=== PATIENT | female | born 1995 | race American Indian/Alaskan Native ===

== ENCOUNTER 2021-06-01 10:27 | Outpatient (CLI) | payer MEDICAID ==
--- NOTE | 2021-06-01 13:00 | Event Note ---
Date: 06/01/21 (Pt would like to go home.) Pt is a 25 y.o. @ 40+ wks gestation with c/o decreased movement. Pt denies vaginal bleeding, LOF, ctxs. A BPP was ordered and found to be 6/8, off for breathing. These findings were discussed with the patient and the need to be admitted for IOL. Pt and her declined admission at this time. Stating that they want labor to start naturally on its own and they wanted limited vaginal exams. We discussed the risk of stillborn is increased at this time d/t being postdates, and based on BPP finding of no practice breathing. Pt states " I am comfortable with the risk of stillborn and I will come back to triage if the baby is not moving like normal." There was a category 1 monitor tracing throughout her triage stay. Patient states that she had some movement before being discharged home. Pt discharged home with strict precautions: she is to return to triage if decreased movement, vaginal bleeding, LOF, and ctxs. If she does not return to triage, she will keep her scheduled appointment in the clinic on 06/04.
[2021-06-01 13:39] VITALS: BP 120/70
--- NOTE | 2021-06-01 14:15 | Ultrasound Report ---
ULTRASOUND BIOPHYSICAL PROFILE INDICATION: Please do a full STEFFEN.. COMPARISON: None available. FINDINGS: breathing movement = 0 Gross body movement = 2 tone = 2 Qualitative amniotic fluid volume = 2 Total biophysical score = 6/8 Amniotic fluid index is 6.2 cm. Presentation is Cephalic. heart rate is 113 beats per minute. IMPRESSION: 1. biophysical profile = 6/8 2. Amniotic fluid index is 6.2 cm just below the lower limits of normal. Signer Name: Lee Powell MD Signed: 06/01/2021 2:10 PM Workstation Name: [id number]
== END 2021-06-01 13:00 | disposition home or self-care (01) ==
LOC: TRG 10:27 → APU 10:29 → TRG 13:00
PROVIDERS: ATTEND Obstetrics & Gynecology
DX: O36.8130 Decreased fetal movements, third trimester, not applicable or unspecified (principal); Z3A.40 40 weeks gestation of pregnancy
CPT/HCPCS: 76815; 76819

== ENCOUNTER 2021-06-06 16:14 | Inpatient (IN) | payer MEDICAID ==
--- NOTE | 2021-06-06 16:28 | History and Physical Report ---
History of Present Illness Date of examination: 06/06/21 (pt presents for IOL 41+w) Date of admission: 06/06/21 16:14 History of present illness: EDC Confirmation: 05/28/2021 Gestational Age: 41 1/7 weeks Past History : 1 Term Births: 0 Premature Births: 0 Living Children: 0 Para: 0 Mult. Births: 0 Prev : 0 Prev. attempt? 0 Aborta: 0 Elect. Ab: 0 Spont. 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 of genital herpes: no Partner hx. of genital herpes: no Rash, Viral, or Febrile illness since last LMP? no Varicella/Chicken Pox Status: Immunized Genetic History Congenital Heart Defect: Mom: no Dad: no Simon Disease: Mom: no Dad: no Thalassemia Mom: no Dad: no Neural Tube Defect Mom: yes Dad: no Comments: cousin's child Down's Syndrome Mom: no Dad: no Jonah-Sachs Mom: no Dad: no Sickle Cell Disease/Trait Mom: no Dad: no Hemophilia Mom: no Dad: no Muscular Dystrophy Mom: no Dad: no Cystic Fibrosis Mom: no Dad: no Judah Chorea Mom: no Dad: no Mental Retardation Mom: no Dad: no Fragile X Mom: no Dad: no Other Genetic/Chromosomal Disorder Mom: no Dad: no Child w/other defect Mom: no Dad: no Enviromental Exposures Xray Exposure: no Medication, drug, or alcohol use since LMP: no Chemical/Other Exposure: no Exposure to Cat Liter: yes Hx of Parvovirus (Fifth Disease): no Occupational Exposure to Children: none 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 Medications (reviewed today): PLUS 27-1 MG ORAL TABLET ( VIT-FE FUMARATE-FA) 1 po daily 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) Current Allergies (reviewed today): No known allergies Past History - Obstetrical History Expected Date of Delivery: 05/28/21 Actual Gestation: 41 Week(s) 3 Day(s) : 1 Para: 0 Hx # Term Pregnancies: 0 Number of Pregnancies: 0 Spontaneous Abortions: 0 Induced : 0 Number of Living Children: 0 Medications and Allergies Allergies Allergy/AdvReac Type Severity Reaction Status Date / Time No Known Allergies Allergy Verified 06/01/21 10:58 Home Medications Medication Instructions Recorded Confirmed Last Taken Type One Daily Tablet 1 tab PO DAILY 06/06/21 06/06/21 1 Day Ago History ~06/05/21 Review of Systems All systems: negative - Physical Exam Breasts: Positive: deferred Cardiovascular: Regular rate, Normal S1, Normal S2 Lungs: Positive: Normal air movement Abdomen: Positive: normal appearance, soft, normal bowel sounds. Negative: distention, tenderness Genitourinary (Female): Positive: normal external genitalia Vulva: both: normal Vagina: Positive: normal moisture. Negative: discharge Cervix: Negative: lesion, discharge Uterus: Positive: normal size, normal contour Adnexa: both: normal Anus/Rectum: Positive: normal perianal skin, heme negative. Negative: rectal mass, hemorrhoids Extremities: Positive: normal Deep Tendon Reflex Grade: Normal +2 - Obstetrical FHR: category 1 Uterine Contraction Monitor Mode: External Cervical Dilatation: 0.5 (per RN) Cervical Effacement Percentage: 0 station: -3 Uterine Contraction Pattern: Irregular Uterine Tone Measurement Phase: Resting Uterine Contraction Intensity: Mild Results Result Diagrams: 06/06/21 16:56 All other labs normal. GBS Negative HBsAg Screen Negative Negative *1 RPR Non Reactive Non Reactive *2 Rubella Antibodies, IgG 2.68 index Immune >0.99 *3 Non-immune <0.90 Equivocal 0.90 - 0.99 Immune >0.99 ABO Grouping A *4 Rh Factor Positive *5 Please note: Prior records for this patient's ABO / Rh type are not available for additional verification. Antibody Screen Negative Negative *6 WBC 5.3 x10E3/uL 3.4-10.8 *7 RBC 4.02 x10E6/uL 3.77-5.28 *8 Hemoglobin 13.0 g/dL 11.1-15.9 *9 Hematocrit 38.1 % 34.0-46.6 *10 MCV 95 fL 79-97 *11 MCH 32.3 pg 26.6-33.0 *12 MCHC 34.1 g/dL 31.5-35.7 *13 RDW 12.8 % 11.7-15.4 *14 Platelets 222 x10E3/uL 150-450 *15 Neutrophils 66 % Not Estab. *16 Lymphs 23 % Not Estab. *17 Monocytes 7 % Not Estab. *18 Eos 3 % Not Estab. *19 Basos 1 % Not Estab. *20 ! Immature Cells <No Reported Value> *21 Neutrophils (Absolute) 3.5 x10E3/uL 1.4-7.0 *22 Lymphs (Absolute) 1.2 x10E3/uL 0.7-3.1 *23 Monocytes(Absolute) 0.4 x10E3/uL 0.1-0.9 *24 Eos (Absolute) 0.1 x10E3/uL 0.0-0.4 *25 Baso (Absolute) 0.0 x10E3/uL 0.0-0.2 *26 ! Immature Granulocytes 0 % Not Estab. *27 ! Immature Grans (Abs) 0.0 x10E3/uL 0.0-0.1 *28 ! NRBC <No Reported Value> *29 Hematology Comments: <No Reported Value> *30 Tests: (2) AFP Tetra ([id number]) ! Results Report *31 ! Test Results: *Screen Negative* *32 ! Gest. Age on Collection Date 16.0 WEEKS *33 ! Gestat. Age Based On Ultrasound *34 16.0 on 12/11/2020 Tests: (3) HIV Ag/Ab with Reflex ([id number]) HIV Screen 4th Generation wRfx Non Reactive Non Reactive *55 Tests: (4) HCV Ab w/Rflx to Verification ([id number]) ! HCV Ab <0.1 s/co ratio 0.0-0.9 *56 Tests: (5) Comment: ([id number]) ! Comment: SPRCS *57 Non reactive HCV antibody screen is consistent with no HCV infection, unless recent infection is suspected or other evidence exists to indicate HCV infection. Tests: (6) Urine Culture, Routine ([id number]) Urine Culture, Routine Final report *58 Tests: (7) Result ([id number]) ! Result 1 No growth *5 Assessment and Plan 25yo @ 41w for IOL. GBS negative all orders in EMR. Dr Gan aware of admission - Patient Problems (1) Post-dates Onset Date: ~06/06/21 Current Visit: Yes Status: Acute (2) 41 weeks gestation of Onset Date: ~06/06/21 Current Visit: Yes Status: Acute
[2021-06-06] MEDS ORDERED: NalbUPHINE 10 MG/1 ML INJ IV PRN (17:00)
[2021-06-06] MEDS ORDERED: LIDOCAINE (2%) 20 MG/1 ML VIAL 20 ML MDV INFILTRATI SCH (17:00)
[2021-06-06] MEDS ORDERED: CARBOPROST TROMETHAMINE 250 MCG/1 ML INJ IM PRN (17:00)
[2021-06-06] MEDS ORDERED: METHYLERGONOVINE MALEATE 0.2 MG/ML VIAL IM PRN (17:00)
[2021-06-06] MEDS ORDERED: MINERAL OIL 30 ML ORAL LIQD PO PRN (17:00)
[2021-06-06] MEDS ORDERED: LOPERAMIDE 2 MG CAP PO PRN (17:00)
[2021-06-06] MEDS ORDERED: TERBUTALINE 1 MG/1 ML INJ SUB-Q PRN (17:00)
[2021-06-06] MEDS ORDERED: ACETAMINOPHEN 325 MG TAB PO PRN (17:00)
[2021-06-06] MEDS ORDERED: ePHEDrine SULFATE 50 MG/1 ML INJ IV PRN (17:00)
[2021-06-06] MEDS ORDERED: DINOPROSTONE 10 MG VAG SUPP VG SCH (17:00)
[2021-06-06] MEDS ORDERED: OXYTOCIN 10 UNIT/1 ML INJ IM PRN (17:00)
[2021-06-06] MEDS ORDERED: miSOPROStol 200 MCG TAB PR PRN (17:00)
[2021-06-06] MEDS ORDERED: OXYTOCIN DRIP 30 UNITS/500 ML BAG IV SCH ×2 (17:00)
[2021-06-06 17:36] LABS: Hematocrit 39.6 % (30.3-42.9); Hemoglobin 13.4 gm/dl (10.1-14.3); Mean Corpuscular HGB Conc 34 % (30-34); Mean Corpuscular Volume 98 fl (79-97); Platelet Count 193 K/mm3 (140-440); Red Blood Count 4.04 M/mm3 (3.65-5.03); Red Cell Distribution Width 13.9 % (13.2-15.2)
[2021-06-06] MEDS ORDERED: DINOPROSTONE 10 MG VAG SUPP VG ONE (18:30)
[2021-06-07] MEDS: LACTATED RINGERS 1,000 ML IV SCH (04:50)
[2021-06-07] MEDS ORDERED: miSOPROStol 25 MCG TAB PO NR (08:56)
--- NOTE | 2021-06-07 08:56 | Progress Note ---
<ADAMSMINATIFFANY - Last Filed: 06/07/21 08:55> Objective - Vital Signs Vital Signs: Vital Signs - 12hr 06/06/21 06/06/21 06/06/21 20:58 21:03 21:08 Temperature Pulse Rate 75 83 80 Blood Pressure O2 Sat by Pulse 100 99 99 Oximetry 06/06/21 06/06/21 06/06/21 21:13 21:18 21:23 Temperature Pulse Rate 82 73 73 Blood Pressure O2 Sat by Pulse 100 100 100 Oximetry 06/06/21 06/06/21 06/06/21 21:28 21:33 21:38 Temperature Pulse Rate 89 76 86 Blood Pressure O2 Sat by Pulse 99 99 99 Oximetry 06/06/21 06/06/21 06/06/21 21:43 21:48 21:53 Temperature Pulse Rate 91 H 84 82 Blood Pressure O2 Sat by Pulse 98 98 99 Oximetry 06/06/21 06/06/21 06/06/21 21:58 22:03 22:11 Temperature Pulse Rate 90 87 74 Blood Pressure O2 Sat by Pulse 100 100 100 Oximetry 06/06/21 06/06/21 06/06/21 22:16 22:21 22:26 Temperature Pulse Rate 85 77 84 Blood Pressure O2 Sat by Pulse 99 98 98 Oximetry 06/06/21 06/06/21 06/06/21 22:31 22:36 22:41 Temperature Pulse Rate 89 79 81 Blood Pressure O2 Sat by Pulse 98 99 100 Oximetry 06/06/21 06/06/21 06/06/21 22:46 22:51 22:56 Temperature Pulse Rate 79 81 73 Blood Pressure O2 Sat by Pulse 100 100 100 Oximetry 06/06/21 06/06/21 06/06/21 23:01 23:06 23:11 Temperature Pulse Rate 87 81 78 Blood Pressure O2 Sat by Pulse 99 99 99 Oximetry 06/06/21 06/06/21 06/06/21 23:16 23:21 23:26 Temperature Pulse Rate 88 86 87 Blood Pressure O2 Sat by Pulse 99 98 99 Oximetry 06/06/21 06/06/21 06/06/21 23:31 23:36 23:41 Temperature Pulse Rate 83 85 75 Blood Pressure O2 Sat by Pulse 98 98 98 Oximetry 06/06/21 06/06/21 06/06/21 23:47 23:52 23:57 Temperature Pulse Rate 79 93 H 73 Blood Pressure 101/66 O2 Sat by Pulse 100 100 99 Oximetry 06/07/21 06/07/21 06/07/21 00:02 00:07 00:08 Temperature 99.0 F Pulse Rate 74 76 Blood Pressure O2 Sat by Pulse 100 99 Oximetry 06/07/21 06/07/21 06/07/21 00:12 00:17 00:22 Temperature Pulse Rate 80 72 79 Blood Pressure O2 Sat by Pulse 97 99 99 Oximetry 06/07/21 06/07/21 06/07/21 00:27 00:32 00:37 Temperature Pulse Rate 76 65 73 Blood Pressure O2 Sat by Pulse 96 98 98 Oximetry 06/07/21 06/07/21 06/07/21 00:42 00:47 00:52 Temperature Pulse Rate 73 71 67 Blood Pressure O2 Sat by Pulse 98 97 98 Oximetry 06/07/21 06/07/21 06/07/21 00:57 01:02 01:07 Temperature Pulse Rate 74 71 70 Blood Pressure O2 Sat by Pulse 99 96 96 Oximetry 06/07/21 06/07/21 06/07/21 01:12 01:17 01:22 Temperature Pulse Rate 71 70 77 Blood Pressure O2 Sat by Pulse 97 97 97 Oximetry 06/07/21 06/07/21 06/07/21 01:27 01:32 01:37 Temperature Pulse Rate 73 85 69 Blood Pressure O2 Sat by Pulse 97 98 98 Oximetry 06/07/21 06/07/21 06/07/21 01:42 01:47 01:52 Temperature Pulse Rate 69 71 67 Blood Pressure O2 Sat by Pulse 98 98 98 Oximetry 06/07/21 06/07/21 06/07/21 01:57 02:02 02:07 Temperature Pulse Rate 66 69 71 Blood Pressure O2 Sat by Pulse 99 99 99 Oximetry 06/07/21 06/07/21 06/07/21 02:12 02:17 02:22 Temperature Pulse Rate 75 69 69 Blood Pressure O2 Sat by Pulse 99 99 99 Oximetry 06/07/21 06/07/21 06/07/21 02:27 02:32 02:37 Temperature Pulse Rate 79 76 69 Blood Pressure O2 Sat by Pulse 97 98 99 Oximetry 06/07/21 06/07/21 06/07/21 02:42 02:47 02:52 Temperature Pulse Rate 77 71 85 Blood Pressure O2 Sat by Pulse 97 98 97 Oximetry 06/07/21 06/07/21 06/07/21 02:57 03:02 03:07 Temperature Pulse Rate 70 109 H 78 Blood Pressure O2 Sat by Pulse 98 97 98 Oximetry 06/07/21 06/07/21 06/07/21 03:12 03:17 03:22 Temperature Pulse Rate 81 83 94 H Blood Pressure O2 Sat by Pulse 97 97 97 Oximetry 06/07/21 06/07/21 06/07/21 03:27 03:32 03:37 Temperature Pulse Rate 87 65 90 Blood Pressure O2 Sat by Pulse 97 97 97 Oximetry 06/07/21 06/07/21 06/07/21 03:42 03:47 03:52 Temperature Pulse Rate 73 71 83 Blood Pressure O2 Sat by Pulse 98 97 98 Oximetry 06/07/21 06/07/21 06/07/21 03:57 04:02 04:07 Temperature Pulse Rate 74 69 76 Blood Pressure O2 Sat by Pulse 99 99 99 Oximetry 06/07/21 06/07/21 06/07/21 04:12 04:17 04:22 Temperature Pulse Rate 77 72 77 Blood Pressure O2 Sat by Pulse 97 97 100 Oximetry 06/07/21 06/07/21 06/07/21 04:27 04:32 04:37 Temperature Pulse Rate 77 75 80 Blood Pressure O2 Sat by Pulse 98 98 99 Oximetry 06/07/21 06/07/21 06/07/21 04:42 04:45 04:47 Temperature Pulse Rate 75 75 74 Blood Pressure 92/58 O2 Sat by Pulse 99 100 Oximetry 06/07/21 06/07/21 06/07/21 04:52 04:57 04:58 Temperature 98.1 F Pulse Rate 71 71 Blood Pressure O2 Sat by Pulse 100 100 Oximetry 06/07/21 06/07/21 06/07/21 05:02 05:07 05:12 Temperature Pulse Rate 73 78 90 Blood Pressure O2 Sat by Pulse 100 99 98 Oximetry 06/07/21 06/07/21 06/07/21 05:17 05:22 05:27 Temperature Pulse Rate 77 71 67 Blood Pressure O2 Sat by Pulse 98 99 99 Oximetry 06/07/21 06/07/21 06/07/21 05:32 05:37 05:42 Temperature Pulse Rate 66 81 76 Blood Pressure O2 Sat by Pulse 99 98 99 Oximetry 06/07/21 06/07/21 06/07/21 05:47 05:52 05:57 Temperature Pulse Rate 76 82 72 Blood Pressure O2 Sat by Pulse 100 100 100 Oximetry 06/07/21 06/07/21 06/07/21 06:02 06:07 06:18 Temperature Pulse Rate 64 70 Blood Pressure O2 Sat by Pulse 100 100 75 L Oximetry 06/07/21 06/07/21 06/07/21 06:19 06:23 06:28 Temperature Pulse Rate 92 H 74 73 Blood Pressure O2 Sat by Pulse 75 L 99 100 Oximetry 06/07/21 06/07/21 06/07/21 06:33 06:38 06:43 Temperature Pulse Rate 71 68 74 Blood Pressure O2 Sat by Pulse 100 100 99 Oximetry 06/07/21 06/07/21 06/07/21 06:48 06:53 07:02 Temperature Pulse Rate 72 71 69 Blood Pressure O2 Sat by Pulse 100 100 100 Oximetry 06/07/21 06/07/21 06/07/21 07:07 07:12 07:17 Temperature Pulse Rate 73 69 67 Blood Pressure O2 Sat by Pulse 100 100 100 Oximetry 06/07/21 06/07/21 06/07/21 07:22 07:27 07:32 Temperature Pulse Rate 64 68 65 Blood Pressure O2 Sat by Pulse 100 100 100 Oximetry 06/07/21 06/07/21 06/07/21 07:37 07:42 07:47 Temperature Pulse Rate 67 63 69 Blood Pressure O2 Sat by Pulse 100 100 100 Oximetry 06/07/21 06/07/21 06/07/21 07:52 07:57 08:02 Temperature Pulse Rate 81 67 66 Blood Pressure O2 Sat by Pulse 100 100 100 Oximetry 06/07/21 06/07/21 06/07/21 08:07 08:19 08:24 Temperature Pulse Rate 68 67 68 Blood Pressure O2 Sat by Pulse 100 100 100 Oximetry 06/07/21 06/07/21 06/07/21 08:28 08:29 08:34 Temperature Pulse Rate 72 79 74 Blood Pressure O2 Sat by Pulse 90 100 100 Oximetry 06/07/21 06/07/21 06/07/21 08:39 08:44 08:49 Temperature Pulse Rate 82 69 78 Blood Pressure O2 Sat by Pulse 100 100 100 Oximetry - Labs Labs: Abnormal Labs 06/06/21 16:56 MCV 98 H MCH 33 H Laboratory Results - last 24 hr 06/06/21 06/06/21 06/06/21 16:56 16:56 17:02 WBC 5.0 RBC 4.04 Hgb 13.4 Hct 39.6 MCV 98 H MCH 33 H MCHC 34 RDW 13.9 Plt Count 193 Syphilis IgG Antibody Nonreactive Blood Type A POSITIVE Antibody Screen Negative <RACHID VILLANUEVA - Last Filed: 06/07/21 09:42> Assessment and Plan - Patient Problems (1) 41 weeks gestation of Onset Date: ~06/06/21 Current Visit: Yes Status: Acute Plan to address problem: EFW 8#2oz, pelvis difficult to assess to patient's inability to tolerate exam well, however pelvis feels adequate at this time. Limitations of determining adequateness of the pelvis at this EGA discussed. She was informed there may be a 1-2# weight discrepancy by US in the 3rd trimester. Risks with ROXIE discussed, including but not limited to, shoulder dystocia in which the may have transient or permanent paralysis of the the extremities, brain damage or as well as infection. Also discussed possible injury to the rectum or perineum that may require multiple surgeries and result in permanent difficulties with bowel movements and pain. Risks associated with delivery explained, including but not limited to, bleeding that may require a blood transfusion, infection, injury to her bowel and/or bladder or ureters that may be life threatening or fatal. Questions were encouraged and answered. She voiced understanding and desires to proceed with ROXIE. (2) Post-dates Onset Date: ~06/06/21 Current Visit: Yes Status: Acute Subjective - Subjective Date of service: 06/07/21 Principal diagnosis: IUP@ 41wk, IOL postterm Patient reports: movement normal, no new complaints, no loss of fluid, no vaginal bleeding, no contractions Objective - Vital Signs Vital Signs: Vital Signs - 12hr 06/06/21 06/06/21 06/06/21 21:43 21:48 21:53 Temperature Pulse Rate 91 H 84 82 Blood Pressure O2 Sat by Pulse 98 98 99 Oximetry 06/06/21 06/06/21 06/06/21 21:58 22:03 22:11 Temperature Pulse Rate 90 87 74 Blood Pressure O2 Sat by Pulse 100 100 100 Oximetry 06/06/21 06/06/21 06/06/21 22:16 22:21 22:26 Temperature Pulse Rate 85 77 84 Blood Pressure O2 Sat by Pulse 99 98 98 Oximetry 06/06/21 06/06/21 06/06/21 22:31 22:36 22:41 Temperature Pulse Rate 89 79 81 Blood Pressure O2 Sat by Pulse 98 99 100 Oximetry 06/06/21 06/06/21 06/06/21 22:46 22:51 22:56 Temperature Pulse Rate 79 81 73 Blood Pressure O2 Sat by Pulse 100 100 100 Oximetry 06/06/21 06/06/21 06/06/21 23:01 23:06 23:11 Temperature Pulse Rate 87 81 78 Blood Pressure O2 Sat by Pulse 99 99 99 Oximetry 06/06/21 06/06/21 06/06/21 23:16 23:21 23:26 Temperature Pulse Rate 88 86 87 Blood Pressure O2 Sat by Pulse 99 98 99 Oximetry 06/06/21 06/06/21 06/06/21 23:31 23:36 23:41 Temperature Pulse Rate 83 85 75 Blood Pressure O2 Sat by Pulse 98 98 98 Oximetry 06/06/21 06/06/21 06/06/21 23:47 23:52 23:57 Temperature Pulse Rate 79 93 H 73 Blood Pressure 101/66 O2 Sat by Pulse 100 100 99 Oximetry 06/07/21 06/07/21 06/07/21 00:02 00:07 00:08 Temperature 99.0 F Pulse Rate 74 76 Blood Pressure O2 Sat by Pulse 100 99 Oximetry 06/07/21 06/07/21 06/07/21 00:12 00:17 00:22 Temperature Pulse Rate 80 72 79 Blood Pressure O2 Sat by Pulse 97 99 99 Oximetry 06/07/21 06/07/21 06/07/21 00:27 00:32 00:37 Temperature Pulse Rate 76 65 73 Blood Pressure O2 Sat by Pulse 96 98 98 Oximetry 06/07/21 06/07/21 06/07/21 00:42 00:47 00:52 Temperature Pulse Rate 73 71 67 Blood Pressure O2 Sat by Pulse 98 97 98 Oximetry 06/07/21 06/07/21 06/07/21 00:57 01:02 01:07 Temperature Pulse Rate 74 71 70 Blood Pressure O2 Sat by Pulse 99 96 96 Oximetry 06/07/21 06/07/21 06/07/21 01:12 01:17 01:22 Temperature Pulse Rate 71 70 77 Blood Pressure O2 Sat by Pulse 97 97 97 Oximetry 06/07/21 06/07/21 06/07/21 01:27 01:32 01:37 Temperature Pulse Rate 73 85 69 Blood Pressure O2 Sat by Pulse 97 98 98 Oximetry 06/07/21 06/07/21 06/07/21 01:42 01:47 01:52 Temperature Pulse Rate 69 71 67 Blood Pressure O2 Sat by Pulse 98 98 98 Oximetry 06/07/21 06/07/21 06/07/21 01:57 02:02 02:07 Temperature Pulse Rate 66 69 71 Blood Pressure O2 Sat by Pulse 99 99 99 Oximetry 06/07/21 06/07/21 06/07/21 02:12 02:17 02:22 Temperature Pulse Rate 75 69 69 Blood Pressure O2 Sat by Pulse 99 99 99 Oximetry 06/07/21 06/07/21 06/07/21 02:27 02:32 02:37 Temperature Pulse Rate 79 76 69 Blood Pressure O2 Sat by Pulse 97 98 99 Oximetry 06/07/21 06/07/21 06/07/21 02:42 02:47 02:52 Temperature Pulse Rate 77 71 85 Blood Pressure O2 Sat by Pulse 97 98 97 Oximetry 06/07/21 06/07/21 06/07/21 02:57 03:02 03:07 Temperature Pulse Rate 70 109 H 78 Blood Pressure O2 Sat by Pulse 98 97 98 Oximetry 06/07/21 06/07/21 06/07/21 03:12 03:17 03:22 Temperature Pulse Rate 81 83 94 H Blood Pressure O2 Sat by Pulse 97 97 97 Oximetry 06/07/21 06/07/21 06/07/21 03:27 03:32 03:37 Temperature Pulse Rate 87 65 90 Blood Pressure O2 Sat by Pulse 97 97 97 Oximetry 06/07/21 06/07/21 06/07/21 03:42 03:47 03:52 Temperature Pulse Rate 73 71 83 Blood Pressure O2 Sat by Pulse 98 97 98 Oximetry 06/07/21 06/07/21 06/07/21 03:57 04:02 04:07 Temperature Pulse Rate 74 69 76 Blood Pressure O2 Sat by Pulse 99 99 99 Oximetry 06/07/21 06/07/21 06/07/21 04:12 04:17 04:22 Temperature Pulse Rate 77 72 77 Blood Pressure O2 Sat by Pulse 97 97 100 Oximetry 06/07/21 06/07/21 06/07/21 04:27 04:32 04:37 Temperature Pulse Rate 77 75 80 Blood Pressure O2 Sat by Pulse 98 98 99 Oximetry 06/07/21 06/07/21 06/07/21 04:42 04:45 04:47 Temperature Pulse Rate 75 75 74 Blood Pressure 92/58 O2 Sat by Pulse 99 100 Oximetry 06/07/21 06/07/21 06/07/21 04:52 04:57 04:58 Temperature 98.1 F Pulse Rate 71 71 Blood Pressure O2 Sat by Pulse 100 100 Oximetry 06/07/21 06/07/21 06/07/21 05:02 05:07 05:12 Temperature Pulse Rate 73 78 90 Blood Pressure O2 Sat by Pulse 100 99 98 Oximetry 06/07/21 06/07/21 06/07/21 05:17 05:22 05:27 Temperature Pulse Rate 77 71 67 Blood Pressure O2 Sat by Pulse 98 99 99 Oximetry 06/07/21 06/07/21 06/07/21 05:32 05:37 05:42 Temperature Pulse Rate 66 81 76 Blood Pressure O2 Sat by Pulse 99 98 99 Oximetry 06/07/21 06/07/21 06/07/21 05:47 05:52 05:57 Temperature Pulse Rate 76 82 72 Blood Pressure O2 Sat by Pulse 100 100 100 Oximetry 06/07/21 06/07/21 06/07/21 06:02 06:07 06:18 Temperature Pulse Rate 64 70 Blood Pressure O2 Sat by Pulse 100 100 75 L Oximetry 06/07/21 06/07/21 06/07/21 06:19 06:23 06:28 Temperature Pulse Rate 92 H 74 73 Blood Pressure O2 Sat by Pulse 75 L 99 100 Oximetry 06/07/21 06/07/21 06/07/21 06:33 06:38 06:43 Temperature Pulse Rate 71 68 74 Blood Pressure O2 Sat by Pulse 100 100 99 Oximetry 06/07/21 06/07/21 06/07/21 06:48 06:53 07:02 Temperature Pulse Rate 72 71 69 Blood Pressure O2 Sat by Pulse 100 100 100 Oximetry 06/07/21 06/07/21 06/07/21 07:07 07:12 07:17 Temperature Pulse Rate 73 69 67 Blood Pressure O2 Sat by Pulse 100 100 100 Oximetry 06/07/21 06/07/21 06/07/21 07:22 07:27 07:32 Temperature Pulse Rate 64 68 65 Blood Pressure O2 Sat by Pulse 100 100 100 Oximetry 06/07/21 06/07/21 06/07/21 07:37 07:42 07:47 Temperature Pulse Rate 67 63 69 Blood Pressure O2 Sat by Pulse 100 100 100 Oximetry 06/07/21 06/07/21 06/07/21 07:52 07:57 08:02 Temperature Pulse Rate 81 67 66 Blood Pressure O2 Sat by Pulse 100 100 100 Oximetry 06/07/21 06/07/21 06/07/21 08:07 08:19 08:24 Temperature Pulse Rate 68 67 68 Blood Pressure O2 Sat by Pulse 100 100 100 Oximetry 06/07/21 06/07/21 06/07/21 08:28 08:29 08:34 Temperature Pulse Rate 72 79 74 Blood Pressure O2 Sat by Pulse 90 100 100 Oximetry 06/07/21 06/07/21 06/07/21 08:39 08:44 08:49 Temperature Pulse Rate 82 69 78 Blood Pressure O2 Sat by Pulse 100 100 100 Oximetry 06/07/21 06/07/21 06/07/21 08:54 08:59 09:04 Temperature Pulse Rate 69 67 66 Blood Pressure O2 Sat by Pulse 100 100 100 Oximetry 06/07/21 06/07/21 06/07/21 09:09 09:14 09:16 Temperature Pulse Rate 72 66 69 Blood Pressure 91/56 O2 Sat by Pulse 100 99 Oximetry 06/07/21 06/07/21 06/07/21 09:17 09:19 09:24 Temperature Pulse Rate 61 74 73 Blood Pressure O2 Sat by Pulse 74 L 98 98 Oximetry - Exam Breasts: deferred Cardiovascular: Regular rate Lungs: Normal air movement Abdomen: Present: soft. Absent: tenderness Vulva: both: normal Uterus: Present: fundal height above umbilicus. Absent: tenderness FHR: category 1 Uterine Contraction Monitor Mode: External Cervical Dilatation: 0.5 Cervical Effacement Percentage: 40 station: -3 Uterine Contraction Pattern: Absent Deep Tendon Reflex Grade: Normal +2 - Labs Labs: Abnormal Labs 06/06/21 16:56 MCV 98 H MCH 33 H Laboratory Results - last 24 hr 06/06/21 06/06/21 06/06/21 16:56 16:56 17:02 WBC 5.0 RBC 4.04 Hgb 13.4 Hct 39.6 MCV 98 H MCH 33 H MCHC 34 RDW 13.9 Plt Count 193 Syphilis IgG Antibody Nonreactive Blood Type A POSITIVE Antibody Screen Negative
[2021-06-07] MEDS ORDERED: miSOPROStol 25 MCG TAB PO ONE (16:30)
--- NOTE | 2021-06-07 16:30 | Event Note ---
Date: 06/07/21 Pt without complaints. SVE 1/thick/high/posterior; POC discussed with pt and FOB. IOL options discussed in length, including risks and benefits. Pt verbalizes understanding. Pt agrees to cytotec PO dose at this time. Order placed in EMR and RN notified. Dr. Block made aware.
--- NOTE | 2021-06-07 22:32 | Progress Note ---
Assessment and Plan Pt without complaints s/p 2 doses of cytotec. FHT's cat 1 with regular contraction pattern at this time. Pt agrees to cervical exam. SVE 1cm/30%/-3 VTX intact BOW. POC d/w pt. Pt agrees to cooks catheter placement. Sterile speculum placed and cervix cleaned with betadine. Cooks catheter inserted without difficulty and each balloon inflated with 80mL of sterile water. Pt tolerated procedure well. Plan to start low dose Pitocin if contraction frequency changes >q3mins. Pt verbalizes understanding and agreement. All questions and concerns addressed. Anticipate . - Patient Problems (1) 41 weeks gestation of Onset Date: ~06/06/21 Current Visit: Yes Status: Acute (2) Post-dates Onset Date: ~06/06/21 Current Visit: Yes Status: Acute Subjective - Subjective Date of service: 06/07/21 Principal diagnosis: IUP@ 41wk, IOL postterm Patient reports: movement normal, contractions, no new complaints, no loss of fluid, no vaginal bleeding Objective - Vital Signs Vital Signs: Vital Signs - 12hr 06/07/21 06/07/21 06/07/21 11:20 15:22 19:03 Temperature 98.7 F Pulse Rate 81 75 69 Respiratory 18 Rate Blood Pressure 98/63 107/66 95/59 Blood Pressure 107/66 [Left] O2 Sat by Pulse Oximetry 06/07/21 19:05 Temperature 98.3 F Pulse Rate 74 Respiratory 20 Rate Blood Pressure Blood Pressure 95/59 [Left] O2 Sat by Pulse 100 Oximetry - Exam Breasts: deferred Cardiovascular: Regular rate Lungs: Normal air movement Abdomen: Present: normal appearance, soft Vulva: both: normal Uterus: Present: normal. Absent: bogginess, tenderness FHR: auscultation normal, category 1 Uterine Contraction Monitor Mode: External Cervical Dilatation: 1 Cervical Effacement Percentage: 30 station: -3 Uterine Contraction Frequency (min): 2 Uterine Contraction Pattern: Regular Uterine Tone Measurement Phase: Resting Extremities: normal - Labs Labs: Abnormal Labs 06/06/21 16:56 MCV 98 H MCH 33 H Laboratory Results - last 24 hr 06/07/21 Unknown Coronavirus (PCR) Negative
[2021-06-08] MEDS: LACTATED RINGERS 1,000 ML IV SCH ×2 (00:48→19:25)
[2021-06-08] MEDS: fentaNYL 100 MCG/2 ML INJ IV PRN ×2 (02:17→06:18)
--- NOTE | 2021-06-08 08:23 | Progress Note ---
Assessment and Plan Cooks cath in place, only cervical balloon if filled at this time, vaginal balloon was deflated by previous floor attendant. Cervical balloon due to come out @ 1015 this morning. Plan reviewed with patient and nurse to continue pitocin per protocol. Patient asking questions about inductions process, discussed plan of care. reviewed with patient she has received cervidil, cytotec, cooks cath and now pitocin. Pain expectations and management reviewed. patient adamant about pitocin being increased to her comfort - advised that during IOL, painful ctx are desired as they lead to cervical change. reviewed difference between IOL and spontaneous labor. An epidural is available if she would like one. All questions addressed. - Patient Problems (1) 41 weeks gestation of Onset Date: ~06/06/21 Current Visit: Yes Status: Acute (2) Post-dates Onset Date: ~06/06/21 Current Visit: Yes Status: Acute Qualifiers: Post-term type: 40-42 weeks gestation Qualified Code(s): O48.0 - Post-term Subjective - Subjective Date of service: 06/08/21 Principal diagnosis: IUP@ 41wk+4; IOL postterm Patient reports: movement normal, contractions, no new complaints, no loss of fluid, no vaginal bleeding Objective - Vital Signs Vital Signs: Vital Signs - 12hr 06/08/21 06/08/21 06/08/21 02:11 02:16 02:17 Temperature Pulse Rate 95 H 93 H Respiratory 28 H Rate Blood Pressure Blood Pressure [Left] O2 Sat by Pulse 98 100 Oximetry O2 Sat by Pulse Oximetry [ Bilateral] 06/08/21 06/08/21 06/08/21 02:21 02:24 02:26 Temperature Pulse Rate 87 90 87 Respiratory Rate Blood Pressure Blood Pressure [Left] O2 Sat by Pulse 100 94 98 Oximetry O2 Sat by Pulse Oximetry [ Bilateral] 06/08/21 06/08/21 06/08/21 02:30 02:31 02:36 Temperature Pulse Rate 96 H 84 93 H Respiratory Rate Blood Pressure Blood Pressure [Left] O2 Sat by Pulse 88 97 98 Oximetry O2 Sat by Pulse Oximetry [ Bilateral] 06/08/21 06/08/21 06/08/21 02:40 02:41 02:45 Temperature Pulse Rate 99 H 90 109 H Respiratory Rate Blood Pressure Blood Pressure [Left] O2 Sat by Pulse 91 98 92 Oximetry O2 Sat by Pulse Oximetry [ Bilateral] 06/08/21 06/08/21 06/08/21 02:46 07:19 07:27 Temperature 98.7 F Pulse Rate 93 H 68 Respiratory 14 Rate Blood Pressure Blood Pressure 93/58 [Left] O2 Sat by Pulse 96 100 Oximetry O2 Sat by Pulse 100 Oximetry [ Bilateral] 06/08/21 07:47 Temperature Pulse Rate 80 Respiratory Rate Blood Pressure 108/66 Blood Pressure [Left] O2 Sat by Pulse Oximetry O2 Sat by Pulse Oximetry [ Bilateral] - Exam Breasts: normal Cardiovascular: Regular rate Lungs: Normal air movement Abdomen: Present: normal appearance, soft Vulva: both: normal (small amount bloody show noted) Uterus: Present: normal FHR: auscultation normal Uterine Contraction Monitor Mode: External Uterine Contraction Pattern: Irregular Uterine Tone Measurement Phase: Contraction Uterine Contraction Intensity: Mild Extremities: normal - Labs Labs: Abnormal Labs 06/06/21 16:56 MCV 98 H MCH 33 H Laboratory Results - last 24 hr 06/07/21 Unknown Coronavirus (PCR) Negative
[2021-06-08] MEDS ORDERED: ePHEDrine SULFATE 50 MG/1 ML INJ IV PRN (13:14)
[2021-06-08] MEDS ORDERED: NALOXONE 2 MG/2 ML INJ IV PRN (13:14)
[2021-06-08] MEDS ORDERED: diphenhydrAMINE 50 MG/ML VIAL IV PRN (13:14)
[2021-06-08] MEDS ORDERED: LACTATED RINGERS 250 ML IV SOLN IV ONE (13:14)
[2021-06-08] MEDS ORDERED: ONDANSETRON 4 MG/2 ML INJ IV PRN (13:14)
[2021-06-08] MEDS ORDERED: NalbUPHINE 10 MG/1 ML INJ IV PRN (13:14)
--- NOTE | 2021-06-08 13:28 | Anesthesia Consultation ---
Anesthesia Consult and Med Hx Date of service: 06/08/21 - Airway Anesthetic Teeth Evaluation: Good ROM Head & Neck: Adequate Mental/Hyoid Distance: Adequate Mallampati Class: Class II Intubation Access Assessment: Probably Good - Pulmonary Exam CTA: Yes - Cardiac Exam Cardiac Exam: RRR - Pre-Operative Health Status ASA Pre-Surgery Classification: ASA2 Proposed Anesthetic Plan: Epidural - Pulmonary Hx Smoking: No Hx Asthma: No Hx Sleep Apnea: No - Cardiovascular System Hx Hypertension: No Hx Heart Attack/AMI: No Hx Angina: No - Central Nervous System Hx Seizures: No Hx Psychiatric Problems: No - Gastrointestinal Hx Gastroesophageal Reflux Disease: No - Endocrine Hx Renal Disease: No Hx Liver Disease: No Hx Insulin Dependent Diabetes: No Hx Non-Insulin Dependent Diabetes: No Hx Hypothyroidism: No Hx Hyperthyroidism: No - Hematic Hx Anemia: No Hx Sickle Cell Disease: No - Other Systems Hx Alcohol Use: No Hx Obesity: Yes
--- NOTE | 2021-06-08 13:30 | Progress Note ---
Labor Epidural - Labor Epidural Start Time: 12:53 Stop Time: 13:07 Performed by:: JUAN CARRENO (Kavitha Edge) Procedure: Patient is requesting epidural for labor and pain. H&P, labs were reviewed. Patient IDed, H&P reviewed, all questions and concerns were answered, and consent was signed. Timeout was performed at bedside. Patient in sitting position. Sterile prep and drape was performed. 3ml of 1% lidocaine skin wheal at L[3]- L [4]. 18-gauge [employer] epidural needle was advanced to loss of resistance with air technique 5cm. Negative CSF negative blood. Epidural catheter advanced to [11] centimeters. [negative] Aspiration [negative] test dose. Sterile dressing applied. Patient tolerated procedure.
[2021-06-08] MEDS: fentaNYL-BUPIV 2 MCG/ML-0.125% 200 MCG/100 ML BAG EPIDURAL SCH ×2 (13:58→22:08)
--- NOTE | 2021-06-08 17:05 | Progress Note ---
Assessment and Plan Late entry due to computer delay - 1420; SVE now 5.5cms/BBOW, discussed with patient pros/cons of AROM and placement of IUPC to better titrate pitocin. Pt agrees with plan of care; AROM clear fluid. IUPC placed without difficultly. - Patient Problems (1) 41 weeks gestation of Onset Date: ~06/06/21 Current Visit: Yes Status: Acute (2) Post-dates Onset Date: ~06/06/21 Current Visit: Yes Status: Acute Qualifiers: Post-term type: 40-42 weeks gestation Qualified Code(s): O48.0 - Post-term Subjective - Subjective Date of service: 06/08/21 Principal diagnosis: IUP@ 41wk+4; IOL postterm Patient reports: no new complaints (comfortable s/p epidural) Objective - Vital Signs Vital Signs: Vital Signs - 12hr 06/08/21 06/08/21 06/08/21 07:19 07:27 07:47 Temperature 98.7 F Pulse Rate 68 80 Respiratory 14 Rate Blood Pressure 108/66 Blood Pressure 93/58 [Left] O2 Sat by Pulse 100 Oximetry O2 Sat by Pulse 100 Oximetry [ Bilateral] 06/08/21 06/08/21 06/08/21 12:23 12:24 12:28 Temperature Pulse Rate 83 87 80 Respiratory Rate Blood Pressure 105/68 Blood Pressure [Left] O2 Sat by Pulse 97 99 Oximetry O2 Sat by Pulse Oximetry [ Bilateral] 06/08/21 06/08/21 06/08/21 12:29 12:33 12:35 Temperature Pulse Rate 82 84 78 Respiratory Rate Blood Pressure 109/70 Blood Pressure [Left] O2 Sat by Pulse 93 95 Oximetry O2 Sat by Pulse Oximetry [ Bilateral] 06/08/21 06/08/21 06/08/21 12:37 12:38 12:39 Temperature Pulse Rate 80 78 78 Respiratory Rate Blood Pressure 107/69 107/68 Blood Pressure [Left] O2 Sat by Pulse 99 Oximetry O2 Sat by Pulse Oximetry [ Bilateral] 06/08/21 06/08/21 06/08/21 12:41 12:43 12:45 Temperature Pulse Rate 75 82 78 Respiratory Rate Blood Pressure 102/65 104/66 119/78 Blood Pressure [Left] O2 Sat by Pulse 97 Oximetry O2 Sat by Pulse Oximetry [ Bilateral] 06/08/21 06/08/21 06/08/21 12:47 12:48 12:49 Temperature Pulse Rate 85 80 73 Respiratory Rate Blood Pressure 113/67 111/73 Blood Pressure [Left] O2 Sat by Pulse 95 Oximetry O2 Sat by Pulse Oximetry [ Bilateral] 06/08/21 06/08/21 06/08/21 12:51 12:53 12:55 Temperature Pulse Rate 82 81 81 Respiratory Rate Blood Pressure 108/69 112/75 104/69 Blood Pressure [Left] O2 Sat by Pulse 97 Oximetry O2 Sat by Pulse Oximetry [ Bilateral] 06/08/21 06/08/21 06/08/21 12:57 12:58 12:59 Temperature Pulse Rate 76 83 78 Respiratory Rate Blood Pressure 109/70 113/75 Blood Pressure [Left] O2 Sat by Pulse 100 Oximetry O2 Sat by Pulse Oximetry [ Bilateral] 06/08/21 06/08/21 06/08/21 13:01 13:03 13:05 Temperature Pulse Rate 75 82 78 Respiratory Rate Blood Pressure 105/72 103/73 104/70 Blood Pressure [Left] O2 Sat by Pulse 100 Oximetry O2 Sat by Pulse Oximetry [ Bilateral] 06/08/21 06/08/21 06/08/21 13:07 13:08 13:09 Temperature Pulse Rate 78 85 80 Respiratory Rate Blood Pressure 103/70 105/73 Blood Pressure [Left] O2 Sat by Pulse 98 Oximetry O2 Sat by Pulse Oximetry [ Bilateral] 06/08/21 06/08/21 06/08/21 13:12 13:13 13:15 Temperature Pulse Rate 90 90 96 H Respiratory Rate Blood Pressure 145/65 118/64 121/59 Blood Pressure [Left] O2 Sat by Pulse 96 Oximetry O2 Sat by Pulse Oximetry [ Bilateral] 06/08/21 06/08/21 06/08/21 13:17 13:18 13:19 Temperature Pulse Rate 93 H 100 H 75 Respiratory Rate Blood Pressure 96/70 104/59 Blood Pressure [Left] O2 Sat by Pulse 97 Oximetry O2 Sat by Pulse Oximetry [ Bilateral] 06/08/21 06/08/21 06/08/21 13:21 13:23 13:25 Temperature Pulse Rate 82 84 78 Respiratory Rate Blood Pressure 110/61 115/63 115/64 Blood Pressure [Left] O2 Sat by Pulse 96 Oximetry O2 Sat by Pulse Oximetry [ Bilateral] 06/08/21 06/08/21 06/08/21 13:27 13:28 13:29 Temperature Pulse Rate 82 80 75 Respiratory Rate Blood Pressure 115/63 108/57 Blood Pressure [Left] O2 Sat by Pulse 98 Oximetry O2 Sat by Pulse Oximetry [ Bilateral] 06/08/21 06/08/21 06/08/21 13:31 13:33 13:35 Temperature Pulse Rate 89 88 83 Respiratory Rate Blood Pressure 101/65 104/64 99/59 Blood Pressure [Left] O2 Sat by Pulse 98 Oximetry O2 Sat by Pulse Oximetry [ Bilateral] 06/08/21 06/08/21 06/08/21 13:36 13:37 13:38 Temperature Pulse Rate 85 73 80 Respiratory Rate Blood Pressure 104/59 Blood Pressure [Left] O2 Sat by Pulse 93 95 Oximetry O2 Sat by Pulse Oximetry [ Bilateral] 06/08/21 06/08/21 06/08/21 13:39 13:41 13:43 Temperature Pulse Rate 75 80 79 Respiratory Rate Blood Pressure 102/62 102/59 103/61 Blood Pressure [Left] O2 Sat by Pulse 95 Oximetry O2 Sat by Pulse Oximetry [ Bilateral] 06/08/21 06/08/21 06/08/21 13:44 13:45 13:47 Temperature Pulse Rate 72 76 83 Respiratory Rate Blood Pressure 105/62 104/65 Blood Pressure [Left] O2 Sat by Pulse 93 Oximetry O2 Sat by Pulse Oximetry [ Bilateral] 06/08/21 06/08/21 06/08/21 13:48 13:49 13:51 Temperature Pulse Rate 77 67 73 Respiratory Rate Blood Pressure 106/60 104/61 Blood Pressure [Left] O2 Sat by Pulse 98 Oximetry O2 Sat by Pulse Oximetry [ Bilateral] 06/08/21 06/08/21 06/08/21 13:53 13:55 13:57 Temperature Pulse Rate 76 74 71 Respiratory Rate Blood Pressure 108/61 109/67 104/65 Blood Pressure [Left] O2 Sat by Pulse 96 Oximetry O2 Sat by Pulse Oximetry [ Bilateral] 06/08/21 06/08/21 06/08/21 13:58 13:59 14:01 Temperature Pulse Rate 71 74 71 Respiratory Rate Blood Pressure 107/66 104/65 Blood Pressure [Left] O2 Sat by Pulse 99 Oximetry O2 Sat by Pulse Oximetry [ Bilateral] 06/08/21 06/08/21 06/08/21 14:03 14:05 14:07 Temperature Pulse Rate 80 82 75 Respiratory Rate Blood Pressure 124/80 118/62 106/54 Blood Pressure [Left] O2 Sat by Pulse 99 Oximetry O2 Sat by Pulse Oximetry [ Bilateral] 06/08/21 06/08/21 06/08/21 14:08 14:09 14:11 Temperature Pulse Rate 76 70 78 Respiratory Rate Blood Pressure 105/55 102/55 Blood Pressure [Left] O2 Sat by Pulse 100 Oximetry O2 Sat by Pulse Oximetry [ Bilateral] 06/08/21 06/08/21 06/08/21 14:13 14:15 14:17 Temperature Pulse Rate 70 72 81 Respiratory Rate Blood Pressure 97/58 99/62 109/71 Blood Pressure [Left] O2 Sat by Pulse 98 Oximetry O2 Sat by Pulse Oximetry [ Bilateral] 06/08/21 06/08/21 06/08/21 14:18 14:19 14:21 Temperature Pulse Rate 74 74 86 Respiratory Rate Blood Pressure 110/63 110/64 Blood Pressure [Left] O2 Sat by Pulse 98 Oximetry O2 Sat by Pulse Oximetry [ Bilateral] 06/08/21 06/08/21 06/08/21 14:23 14:25 14:27 Temperature Pulse Rate 76 73 71 Respiratory Rate Blood Pressure 107/60 112/67 112/69 Blood Pressure [Left] O2 Sat by Pulse 98 Oximetry O2 Sat by Pulse Oximetry [ Bilateral] 06/08/21 06/08/21 06/08/21 14:28 14:33 14:38 Temperature Pulse Rate 71 80 91 H Respiratory Rate Blood Pressure Blood Pressure [Left] O2 Sat by Pulse 98 97 95 Oximetry O2 Sat by Pulse Oximetry [ Bilateral] 06/08/21 06/08/21 06/08/21 14:43 14:48 14:53 Temperature Pulse Rate 77 73 73 Respiratory Rate Blood Pressure Blood Pressure [Left] O2 Sat by Pulse 98 98 97 Oximetry O2 Sat by Pulse Oximetry [ Bilateral] 06/08/21 06/08/21 06/08/21 14:58 15:03 15:08 Temperature Pulse Rate 75 71 76 Respiratory Rate Blood Pressure Blood Pressure [Left] O2 Sat by Pulse 97 97 98 Oximetry O2 Sat by Pulse Oximetry [ Bilateral] 08/27/21 08/27/21 08/27/21 15:13 15:18 15:23 Temperature Pulse Rate 72 74 75 Respiratory Rate Blood Pressure Blood Pressure [Left] O2 Sat by Pulse 97 96 97 Oximetry O2 Sat by Pulse Oximetry [ Bilateral] 06/08/21 06/08/21 06/08/21 15:28 15:29 15:33 Temperature Pulse Rate 77 79 70 Respiratory Rate Blood Pressure 88/54 Blood Pressure [Left] O2 Sat by Pulse 97 96 Oximetry O2 Sat by Pulse Oximetry [ Bilateral] 06/08/21 06/08/21 06/08/21 15:38 15:43 15:48 Temperature Pulse Rate 74 75 84 Respiratory Rate Blood Pressure Blood Pressure [Left] O2 Sat by Pulse 97 96 96 Oximetry O2 Sat by Pulse Oximetry [ Bilateral] 06/08/21 06/08/21 06/08/21 15:53 15:58 16:03 Temperature Pulse Rate 89 75 80 Respiratory Rate Blood Pressure Blood Pressure [Left] O2 Sat by Pulse 95 95 96 Oximetry O2 Sat by Pulse Oximetry [ Bilateral] 06/08/21 06/08/21 06/08/21 16:06 16:08 16:13 Temperature Pulse Rate 83 78 75 Respiratory Rate Blood Pressure Blood Pressure [Left] O2 Sat by Pulse 93 95 97 Oximetry O2 Sat by Pulse Oximetry [ Bilateral] 06/08/21 06/08/21 06/08/21 16:18 16:23 16:28 Temperature Pulse Rate 74 72 79 Respiratory Rate Blood Pressure Blood Pressure [Left] O2 Sat by Pulse 96 94 98 Oximetry O2 Sat by Pulse Oximetry [ Bilateral] 06/08/21 06/08/21 06/08/21 16:30 16:33 16:37 Temperature Pulse Rate 75 91 H 75 Respiratory Rate Blood Pressure 124/66 Blood Pressure [Left] O2 Sat by Pulse 91 97 Oximetry O2 Sat by Pulse Oximetry [ Bilateral] 06/08/21 06/08/21 06/08/21 16:38 16:39 16:43 Temperature 98.8 F Pulse Rate 74 88 Respiratory 18 Rate Blood Pressure Blood Pressure [Left] O2 Sat by Pulse 95 96 Oximetry O2 Sat by Pulse Oximetry [ Bilateral] 06/08/21 06/08/21 06/08/21 16:47 16:48 16:53 Temperature Pulse Rate 74 72 74 Respiratory Rate Blood Pressure Blood Pressure [Left] O2 Sat by Pulse 93 96 96 Oximetry O2 Sat by Pulse Oximetry [ Bilateral] 06/08/21 16:58 Temperature Pulse Rate 69 Respiratory Rate Blood Pressure Blood Pressure [Left] O2 Sat by Pulse 95 Oximetry O2 Sat by Pulse Oximetry [ Bilateral] - Exam Cardiovascular: Regular rate Lungs: Clear to auscultation Abdomen: Present: normal appearance, soft, normal bowel sounds Vulva: both: normal Uterus: Present: normal, firm FHR: auscultation normal Uterine Contraction Monitor Mode: Internal Cervical Dilatation: 5.5 (AROM - clear) Cervical Effacement Percentage: 80 station: -1 - Labs Labs: Abnormal Labs 06/06/21 16:56 MCV 98 H MCH 33 H
--- NOTE | 2021-06-08 20:03 | Progress Note ---
Assessment and Plan reevaluated SVE - now /-1. Small amount of caput noted, anterior portion of cervix swollen. suspect baby is asynclitic. RN to use frequent position changes. Pitocin turned off earlier d/t tachysystole, restarted @ 6mU for adequate ctxs. RN to increase per protocol. Dr. greco updated on pt's status. - Patient Problems (1) 41 weeks gestation of Onset Date: ~06/06/21 Current Visit: Yes Status: Acute (2) Post-dates Onset Date: ~06/06/21 Current Visit: Yes Status: Acute Qualifiers: Post-term type: 40-42 weeks gestation Qualified Code(s): O48.0 - Post-term Subjective - Subjective Date of service: 06/08/21 Principal diagnosis: IUP@ 41wk+4; IOL postterm Patient reports: no new complaints (comfortable s/p epidural) Objective - Vital Signs Vital Signs: Vital Signs - 12hr 06/08/21 06/08/21 06/08/21 12:23 12:24 12:28 Temperature Pulse Rate 83 87 80 Respiratory Rate Blood Pressure 105/68 O2 Sat by Pulse 97 99 Oximetry 06/08/21 06/08/21 06/08/21 12:29 12:33 12:35 Temperature Pulse Rate 82 84 78 Respiratory Rate Blood Pressure 109/70 O2 Sat by Pulse 93 95 Oximetry 06/08/21 06/08/21 06/08/21 12:37 12:38 12:39 Temperature Pulse Rate 80 78 78 Respiratory Rate Blood Pressure 107/69 107/68 O2 Sat by Pulse 99 Oximetry 06/08/21 06/08/21 06/08/21 12:41 12:43 12:45 Temperature Pulse Rate 75 82 78 Respiratory Rate Blood Pressure 102/65 104/66 119/78 O2 Sat by Pulse 97 Oximetry 06/08/21 06/08/21 06/08/21 12:47 12:48 12:49 Temperature Pulse Rate 85 80 73 Respiratory Rate Blood Pressure 113/67 111/73 O2 Sat by Pulse 95 Oximetry 06/08/21 06/08/21 06/08/21 12:51 12:53 12:55 Temperature Pulse Rate 82 81 81 Respiratory Rate Blood Pressure 108/69 112/75 104/69 O2 Sat by Pulse 97 Oximetry 06/08/21 06/08/21 06/08/21 12:57 12:58 12:59 Temperature Pulse Rate 76 83 78 Respiratory Rate Blood Pressure 109/70 113/75 O2 Sat by Pulse 100 Oximetry 06/08/21 06/08/21 06/08/21 13:01 13:03 13:05 Temperature Pulse Rate 75 82 78 Respiratory Rate Blood Pressure 105/72 103/73 104/70 O2 Sat by Pulse 100 Oximetry 06/08/21 06/08/21 06/08/21 13:07 13:08 13:09 Temperature Pulse Rate 78 85 80 Respiratory Rate Blood Pressure 103/70 105/73 O2 Sat by Pulse 98 Oximetry 06/08/21 06/08/21 06/08/21 13:12 13:13 13:15 Temperature Pulse Rate 90 90 96 H Respiratory Rate Blood Pressure 145/65 118/64 121/59 O2 Sat by Pulse 96 Oximetry 06/08/21 06/08/21 06/08/21 13:17 13:18 13:19 Temperature Pulse Rate 93 H 100 H 75 Respiratory Rate Blood Pressure 96/70 104/59 O2 Sat by Pulse 97 Oximetry 06/08/21 06/08/21 06/08/21 13:21 13:23 13:25 Temperature Pulse Rate 82 84 78 Respiratory Rate Blood Pressure 110/61 115/63 115/64 O2 Sat by Pulse 96 Oximetry 06/08/21 06/08/21 06/08/21 13:27 13:28 13:29 Temperature Pulse Rate 82 80 75 Respiratory Rate Blood Pressure 115/63 108/57 O2 Sat by Pulse 98 Oximetry 06/08/21 06/08/21 06/08/21 13:31 13:33 13:35 Temperature Pulse Rate 89 88 83 Respiratory Rate Blood Pressure 101/65 104/64 99/59 O2 Sat by Pulse 98 Oximetry 06/08/21 06/08/21 06/08/21 13:36 13:37 13:38 Temperature Pulse Rate 85 73 80 Respiratory Rate Blood Pressure 104/59 O2 Sat by Pulse 93 95 Oximetry 06/08/21 06/08/21 06/08/21 13:39 13:41 13:43 Temperature Pulse Rate 75 80 79 Respiratory Rate Blood Pressure 102/62 102/59 103/61 O2 Sat by Pulse 95 Oximetry 06/08/21 06/08/21 06/08/21 13:44 13:45 13:47 Temperature Pulse Rate 72 76 83 Respiratory Rate Blood Pressure 105/62 104/65 O2 Sat by Pulse 93 Oximetry 06/08/21 06/08/21 06/08/21 13:48 13:49 13:51 Temperature Pulse Rate 77 67 73 Respiratory Rate Blood Pressure 106/60 104/61 O2 Sat by Pulse 98 Oximetry 06/08/21 06/08/21 06/08/21 13:53 13:55 13:57 Temperature Pulse Rate 76 74 71 Respiratory Rate Blood Pressure 108/61 109/67 104/65 O2 Sat by Pulse 96 Oximetry 06/08/21 06/08/21 06/08/21 13:58 13:59 14:01 Temperature Pulse Rate 71 74 71 Respiratory Rate Blood Pressure 107/66 104/65 O2 Sat by Pulse 99 Oximetry 06/08/21 06/08/21 06/08/21 14:03 14:05 14:07 Temperature Pulse Rate 80 82 75 Respiratory Rate Blood Pressure 124/80 118/62 106/54 O2 Sat by Pulse 99 Oximetry 06/08/21 06/08/21 06/08/21 14:08 14:09 14:11 Temperature Pulse Rate 76 70 78 Respiratory Rate Blood Pressure 105/55 102/55 O2 Sat by Pulse 100 Oximetry 06/08/21 06/08/21 06/08/21 14:13 14:15 14:17 Temperature Pulse Rate 70 72 81 Respiratory Rate Blood Pressure 97/58 99/62 109/71 O2 Sat by Pulse 98 Oximetry 06/08/21 06/08/21 06/08/21 14:18 14:19 14:21 Temperature Pulse Rate 74 74 86 Respiratory Rate Blood Pressure 110/63 110/64 O2 Sat by Pulse 98 Oximetry 06/08/21 06/08/21 06/08/21 14:23 14:25 14:27 Temperature Pulse Rate 76 73 71 Respiratory Rate Blood Pressure 107/60 112/67 112/69 O2 Sat by Pulse 98 Oximetry 06/08/21 06/08/21 06/08/21 14:28 14:33 14:38 Temperature Pulse Rate 71 80 91 H Respiratory Rate Blood Pressure O2 Sat by Pulse 98 97 95 Oximetry 06/08/21 06/08/21 06/08/21 14:43 14:48 14:53 Temperature Pulse Rate 77 73 73 Respiratory Rate Blood Pressure O2 Sat by Pulse 98 98 97 Oximetry 06/08/21 06/08/21 06/08/21 14:58 15:03 15:08 Temperature Pulse Rate 75 71 76 Respiratory Rate Blood Pressure O2 Sat by Pulse 97 97 98 Oximetry 06/08/21 06/08/21 06/08/21 15:13 15:18 15:23 Temperature Pulse Rate 72 74 75 Respiratory Rate Blood Pressure O2 Sat by Pulse 97 96 97 Oximetry 06/08/21 06/08/21 06/08/21 15:28 15:29 15:33 Temperature Pulse Rate 77 79 70 Respiratory Rate Blood Pressure 88/54 O2 Sat by Pulse 97 96 Oximetry 06/08/21 06/08/21 06/08/21 15:38 15:43 15:48 Temperature Pulse Rate 74 75 84 Respiratory Rate Blood Pressure O2 Sat by Pulse 97 96 96 Oximetry 06/08/21 06/08/21 06/08/21 15:53 15:58 16:03 Temperature Pulse Rate 89 75 80 Respiratory Rate Blood Pressure O2 Sat by Pulse 95 95 96 Oximetry 06/08/21 06/08/21 06/08/21 16:06 16:08 16:13 Temperature Pulse Rate 83 78 75 Respiratory Rate Blood Pressure O2 Sat by Pulse 93 95 97 Oximetry 06/08/21 06/08/21 06/08/21 16:18 16:23 16:28 Temperature Pulse Rate 74 72 79 Respiratory Rate Blood Pressure O2 Sat by Pulse 96 94 98 Oximetry 06/08/21 06/08/21 06/08/21 16:30 16:33 16:37 Temperature Pulse Rate 75 91 H 75 Respiratory Rate Blood Pressure 124/66 O2 Sat by Pulse 91 97 Oximetry 06/08/21 06/08/21 06/08/21 16:38 16:39 16:43 Temperature 98.8 F Pulse Rate 74 88 Respiratory 18 Rate Blood Pressure O2 Sat by Pulse 95 96 Oximetry 06/08/21 06/08/21 06/08/21 16:47 16:48 16:53 Temperature Pulse Rate 74 72 74 Respiratory Rate Blood Pressure O2 Sat by Pulse 93 96 96 Oximetry 06/08/21 06/08/21 06/08/21 16:58 17:03 17:08 Temperature Pulse Rate 69 73 73 Respiratory Rate Blood Pressure O2 Sat by Pulse 95 97 94 Oximetry 06/08/21 06/08/21 06/08/21 17:10 17:13 17:18 Temperature Pulse Rate 75 70 72 Respiratory Rate Blood Pressure O2 Sat by Pulse 92 96 95 Oximetry 06/08/21 06/08/21 06/08/21 17:23 17:25 17:29 Temperature Pulse Rate 70 88 73 Respiratory Rate Blood Pressure 112/58 O2 Sat by Pulse 93 93 97 Oximetry 06/08/21 06/08/21 06/08/21 17:34 17:39 17:42 Temperature Pulse Rate 77 84 83 Respiratory Rate Blood Pressure O2 Sat by Pulse 97 94 89 Oximetry 06/08/21 06/08/21 06/08/21 17:44 17:49 17:50 Temperature Pulse Rate 79 82 81 Respiratory Rate Blood Pressure O2 Sat by Pulse 100 98 92 Oximetry 06/08/21 06/08/21 06/08/21 17:54 17:59 18:04 Temperature Pulse Rate 73 78 76 Respiratory Rate Blood Pressure O2 Sat by Pulse 99 99 99 Oximetry 06/08/21 06/08/21 06/08/21 18:09 18:14 18:19 Temperature Pulse Rate 84 75 67 Respiratory Rate Blood Pressure O2 Sat by Pulse 96 98 99 Oximetry 06/08/21 06/08/21 06/08/21 18:24 18:29 18:30 Temperature Pulse Rate 65 67 70 Respiratory Rate Blood Pressure 106/56 O2 Sat by Pulse 98 97 Oximetry 06/08/21 06/08/21 06/08/21 18:34 18:39 18:41 Temperature Pulse Rate 69 71 80 Respiratory Rate Blood Pressure O2 Sat by Pulse 97 99 92 Oximetry 06/08/21 06/08/21 06/08/21 18:44 18:49 18:54 Temperature Pulse Rate 64 61 67 Respiratory Rate Blood Pressure O2 Sat by Pulse 100 100 100 Oximetry 06/08/21 06/08/21 06/08/21 18:59 19:04 19:09 Temperature Pulse Rate 68 71 67 Respiratory Rate Blood Pressure O2 Sat by Pulse 100 100 100 Oximetry 06/08/21 06/08/21 06/08/21 19:14 19:19 19:24 Temperature Pulse Rate 65 74 67 Respiratory Rate Blood Pressure O2 Sat by Pulse 100 100 100 Oximetry 06/08/21 06/08/21 06/08/21 19:29 19:34 19:39 Temperature Pulse Rate 73 86 83 Respiratory Rate Blood Pressure 93/59 O2 Sat by Pulse 100 100 100 Oximetry 06/08/21 06/08/21 06/08/21 19:44 19:49 19:54 Temperature Pulse Rate 65 85 78 Respiratory Rate Blood Pressure O2 Sat by Pulse 100 100 100 Oximetry - Exam Cardiovascular: Regular rate Lungs: Normal air movement Abdomen: Present: normal appearance, soft Vulva: both: normal Uterus: Present: normal FHR: auscultation normal, category 1 Uterine Contraction Monitor Mode: Internal Cervical Dilatation: 7 (swollen ant lip) Cervical Effacement Percentage: 90 station: -1 Uterine Contraction Frequency (min): 4-6 Uterine Contraction Duration: 60 Uterine Contraction Pattern: Regular Uterine Tone Measurement Phase: Contraction Uterine Contraction Intensity: Mild Extremities: normal - Labs Labs: Abnormal Labs 06/06/21 16:56 MCV 98 H MCH 33 H
[2021-06-08] MEDS ORDERED: ACETAMINOPHEN 500 MG TAB PO ONE (22:07)
--- NOTE | 2021-06-08 22:12 | Progress Note ---
Assessment and Plan Pitocin has remained @ 6Mu over the last 2 hours, ctx are not adequate. SVE now /0, swollen portion of anterior cervix is gone. small amount of caput noted but has not increased over the last 2 hours. Patient positioned to right side with peanut ball in place. rn to increase pitocin. Oral Temp 100.0, will give dose of Tylenol and continue to monitor closely. - Patient Problems (1) 41 weeks gestation of Onset Date: ~06/06/21 Current Visit: Yes Status: Acute (2) Post-dates Onset Date: ~06/06/21 Current Visit: Yes Status: Acute Qualifiers: Post-term type: 40-42 weeks gestation Qualified Code(s): O48.0 - Post-term Subjective - Subjective Date of service: 06/08/21 Principal diagnosis: IUP@ 41wk+4; IOL postterm Patient reports: no new complaints (comfortable s/p epidural) Objective - Vital Signs Vital Signs: Vital Signs - 12hr 06/08/21 06/08/21 06/08/21 12:23 12:24 12:28 Temperature Pulse Rate 83 87 80 Respiratory Rate Blood Pressure 105/68 O2 Sat by Pulse 97 99 Oximetry O2 Sat by Pulse Oximetry [ Bilateral] 06/08/21 06/08/21 06/08/21 12:29 12:33 12:35 Temperature Pulse Rate 82 84 78 Respiratory Rate Blood Pressure 109/70 O2 Sat by Pulse 93 95 Oximetry O2 Sat by Pulse Oximetry [ Bilateral] 06/08/21 06/08/21 06/08/21 12:37 12:38 12:39 Temperature Pulse Rate 80 78 78 Respiratory Rate Blood Pressure 107/69 107/68 O2 Sat by Pulse 99 Oximetry O2 Sat by Pulse Oximetry [ Bilateral] 06/08/21 06/08/21 06/08/21 12:41 12:43 12:45 Temperature Pulse Rate 75 82 78 Respiratory Rate Blood Pressure 102/65 104/66 119/78 O2 Sat by Pulse 97 Oximetry O2 Sat by Pulse Oximetry [ Bilateral] 06/08/21 06/08/21 06/08/21 12:47 12:48 12:49 Temperature Pulse Rate 85 80 73 Respiratory Rate Blood Pressure 113/67 111/73 O2 Sat by Pulse 95 Oximetry O2 Sat by Pulse Oximetry [ Bilateral] 06/08/21 06/08/21 06/08/21 12:51 12:53 12:55 Temperature Pulse Rate 82 81 81 Respiratory Rate Blood Pressure 108/69 112/75 104/69 O2 Sat by Pulse 97 Oximetry O2 Sat by Pulse Oximetry [ Bilateral] 06/08/21 06/08/21 06/08/21 12:57 12:58 12:59 Temperature Pulse Rate 76 83 78 Respiratory Rate Blood Pressure 109/70 113/75 O2 Sat by Pulse 100 Oximetry O2 Sat by Pulse Oximetry [ Bilateral] 06/08/21 06/08/21 06/08/21 13:01 13:03 13:05 Temperature Pulse Rate 75 82 78 Respiratory Rate Blood Pressure 105/72 103/73 104/70 O2 Sat by Pulse 100 Oximetry O2 Sat by Pulse Oximetry [ Bilateral] 06/08/21 06/08/21 06/08/21 13:07 13:08 13:09 Temperature Pulse Rate 78 85 80 Respiratory Rate Blood Pressure 103/70 105/73 O2 Sat by Pulse 98 Oximetry O2 Sat by Pulse Oximetry [ Bilateral] 06/08/21 06/08/21 06/08/21 13:12 13:13 13:15 Temperature Pulse Rate 90 90 96 H Respiratory Rate Blood Pressure 145/65 118/64 121/59 O2 Sat by Pulse 96 Oximetry O2 Sat by Pulse Oximetry [ Bilateral] 06/08/21 06/08/21 06/08/21 13:17 13:18 13:19 Temperature Pulse Rate 93 H 100 H 75 Respiratory Rate Blood Pressure 96/70 104/59 O2 Sat by Pulse 97 Oximetry O2 Sat by Pulse Oximetry [ Bilateral] 06/08/21 06/08/21 06/08/21 13:21 13:23 13:25 Temperature Pulse Rate 82 84 78 Respiratory Rate Blood Pressure 110/61 115/63 115/64 O2 Sat by Pulse 96 Oximetry O2 Sat by Pulse Oximetry [ Bilateral] 06/08/21 06/08/21 06/08/21 13:27 13:28 13:29 Temperature Pulse Rate 82 80 75 Respiratory Rate Blood Pressure 115/63 108/57 O2 Sat by Pulse 98 Oximetry O2 Sat by Pulse Oximetry [ Bilateral] 06/08/21 06/08/21 06/08/21 13:31 13:33 13:35 Temperature Pulse Rate 89 88 83 Respiratory Rate Blood Pressure 101/65 104/64 99/59 O2 Sat by Pulse 98 Oximetry O2 Sat by Pulse Oximetry [ Bilateral] 06/08/21 06/08/21 06/08/21 13:36 13:37 13:38 Temperature Pulse Rate 85 73 80 Respiratory Rate Blood Pressure 104/59 O2 Sat by Pulse 93 95 Oximetry O2 Sat by Pulse Oximetry [ Bilateral] 06/08/21 06/08/21 06/08/21 13:39 13:41 13:43 Temperature Pulse Rate 75 80 79 Respiratory Rate Blood Pressure 102/62 102/59 103/61 O2 Sat by Pulse 95 Oximetry O2 Sat by Pulse Oximetry [ Bilateral] 06/08/21 06/08/21 06/08/21 13:44 13:45 13:47 Temperature Pulse Rate 72 76 83 Respiratory Rate Blood Pressure 105/62 104/65 O2 Sat by Pulse 93 Oximetry O2 Sat by Pulse Oximetry [ Bilateral] 06/08/21 06/08/21 06/08/21 13:48 13:49 13:51 Temperature Pulse Rate 77 67 73 Respiratory Rate Blood Pressure 106/60 104/61 O2 Sat by Pulse 98 Oximetry O2 Sat by Pulse Oximetry [ Bilateral] 06/08/21 06/08/21 06/08/21 13:53 13:55 13:57 Temperature Pulse Rate 76 74 71 Respiratory Rate Blood Pressure 108/61 109/67 104/65 O2 Sat by Pulse 96 Oximetry O2 Sat by Pulse Oximetry [ Bilateral] 06/08/21 06/08/21 06/08/21 13:58 13:59 14:01 Temperature Pulse Rate 71 74 71 Respiratory Rate Blood Pressure 107/66 104/65 O2 Sat by Pulse 99 Oximetry O2 Sat by Pulse Oximetry [ Bilateral] 06/08/21 06/08/21 06/08/21 14:03 14:05 14:07 Temperature Pulse Rate 80 82 75 Respiratory Rate Blood Pressure 124/80 118/62 106/54 O2 Sat by Pulse 99 Oximetry O2 Sat by Pulse Oximetry [ Bilateral] 06/08/21 06/08/21 06/08/21 14:08 14:09 14:11 Temperature Pulse Rate 76 70 78 Respiratory Rate Blood Pressure 105/55 102/55 O2 Sat by Pulse 100 Oximetry O2 Sat by Pulse Oximetry [ Bilateral] 06/08/21 06/08/21 06/08/21 14:13 14:15 14:17 Temperature Pulse Rate 70 72 81 Respiratory Rate Blood Pressure 97/58 99/62 109/71 O2 Sat by Pulse 98 Oximetry O2 Sat by Pulse Oximetry [ Bilateral] 06/08/21 06/08/21 06/08/21 14:18 14:19 14:21 Temperature Pulse Rate 74 74 86 Respiratory Rate Blood Pressure 110/63 110/64 O2 Sat by Pulse 98 Oximetry O2 Sat by Pulse Oximetry [ Bilateral] 06/08/21 06/08/21 06/08/21 14:23 14:25 14:27 Temperature Pulse Rate 76 73 71 Respiratory Rate Blood Pressure 107/60 112/67 112/69 O2 Sat by Pulse 98 Oximetry O2 Sat by Pulse Oximetry [ Bilateral] 06/08/21 06/08/21 06/08/21 14:28 14:33 14:38 Temperature Pulse Rate 71 80 91 H Respiratory Rate Blood Pressure O2 Sat by Pulse 98 97 95 Oximetry O2 Sat by Pulse Oximetry [ Bilateral] 06/08/21 06/08/21 06/08/21 14:43 14:48 14:53 Temperature Pulse Rate 77 73 73 Respiratory Rate Blood Pressure O2 Sat by Pulse 98 98 97 Oximetry O2 Sat by Pulse Oximetry [ Bilateral] 06/08/21 06/08/21 06/08/21 14:58 15:03 15:08 Temperature Pulse Rate 75 71 76 Respiratory Rate Blood Pressure O2 Sat by Pulse 97 97 98 Oximetry O2 Sat by Pulse Oximetry [ Bilateral] 06/08/21 06/08/21 06/08/21 15:13 15:18 15:23 Temperature Pulse Rate 72 74 75 Respiratory Rate Blood Pressure O2 Sat by Pulse 97 96 97 Oximetry O2 Sat by Pulse Oximetry [ Bilateral] 06/08/21 06/08/21 06/08/21 15:28 15:29 15:33 Temperature Pulse Rate 77 79 70 Respiratory Rate Blood Pressure 88/54 O2 Sat by Pulse 97 96 Oximetry O2 Sat by Pulse Oximetry [ Bilateral] 06/08/21 06/08/21 06/08/21 15:38 15:43 15:48 Temperature Pulse Rate 74 75 84 Respiratory Rate Blood Pressure O2 Sat by Pulse 97 96 96 Oximetry O2 Sat by Pulse Oximetry [ Bilateral] 06/08/21 06/08/21 06/08/21 15:53 15:58 16:03 Temperature Pulse Rate 89 75 80 Respiratory Rate Blood Pressure O2 Sat by Pulse 95 95 96 Oximetry O2 Sat by Pulse Oximetry [ Bilateral] 06/08/21 06/08/21 06/08/21 16:06 16:08 16:13 Temperature Pulse Rate 83 78 75 Respiratory Rate Blood Pressure O2 Sat by Pulse 93 95 97 Oximetry O2 Sat by Pulse Oximetry [ Bilateral] 06/08/21 06/08/21 06/08/21 16:18 16:23 16:28 Temperature Pulse Rate 74 72 79 Respiratory Rate Blood Pressure O2 Sat by Pulse 96 94 98 Oximetry O2 Sat by Pulse Oximetry [ Bilateral] 06/08/21 06/08/21 06/08/21 16:30 16:33 16:37 Temperature Pulse Rate 75 91 H 75 Respiratory Rate Blood Pressure 124/66 O2 Sat by Pulse 91 97 Oximetry O2 Sat by Pulse Oximetry [ Bilateral] 06/08/21 06/08/21 06/08/21 16:38 16:39 16:43 Temperature 98.8 F Pulse Rate 74 88 Respiratory 18 Rate Blood Pressure O2 Sat by Pulse 95 96 Oximetry O2 Sat by Pulse Oximetry [ Bilateral] 06/08/21 06/08/21 06/08/21 16:47 16:48 16:53 Temperature Pulse Rate 74 72 74 Respiratory Rate Blood Pressure O2 Sat by Pulse 93 96 96 Oximetry O2 Sat by Pulse Oximetry [ Bilateral] 06/08/21 06/08/21 06/08/21 16:58 17:03 17:08 Temperature Pulse Rate 69 73 73 Respiratory Rate Blood Pressure O2 Sat by Pulse 95 97 94 Oximetry O2 Sat by Pulse Oximetry [ Bilateral] 06/08/21 06/08/21 06/08/21 17:10 17:13 17:18 Temperature Pulse Rate 75 70 72 Respiratory Rate Blood Pressure O2 Sat by Pulse 92 96 95 Oximetry O2 Sat by Pulse Oximetry [ Bilateral] 06/08/21 06/08/21 06/08/21 17:23 17:25 17:29 Temperature Pulse Rate 70 88 73 Respiratory Rate Blood Pressure 112/58 O2 Sat by Pulse 93 93 97 Oximetry O2 Sat by Pulse Oximetry [ Bilateral] 06/08/21 06/08/21 06/08/21 17:34 17:39 17:42 Temperature Pulse Rate 77 84 83 Respiratory Rate Blood Pressure O2 Sat by Pulse 97 94 89 Oximetry O2 Sat by Pulse Oximetry [ Bilateral] 06/08/21 06/08/21 06/08/21 17:44 17:49 17:50 Temperature Pulse Rate 79 82 81 Respiratory Rate Blood Pressure O2 Sat by Pulse 100 98 92 Oximetry O2 Sat by Pulse Oximetry [ Bilateral] 06/08/21 06/08/21 06/08/21 17:54 17:59 18:04 Temperature Pulse Rate 73 78 76 Respiratory Rate Blood Pressure O2 Sat by Pulse 99 99 99 Oximetry O2 Sat by Pulse Oximetry [ Bilateral] 06/08/21 06/08/21 06/08/21 18:09 18:14 18:19 Temperature Pulse Rate 84 75 67 Respiratory Rate Blood Pressure O2 Sat by Pulse 96 98 99 Oximetry O2 Sat by Pulse Oximetry [ Bilateral] 06/08/21 06/08/21 06/08/21 18:24 18:29 18:30 Temperature Pulse Rate 65 67 70 Respiratory Rate Blood Pressure 106/56 O2 Sat by Pulse 98 97 Oximetry O2 Sat by Pulse Oximetry [ Bilateral] 06/08/21 06/08/21 06/08/21 18:34 18:39 18:41 Temperature Pulse Rate 69 71 80 Respiratory Rate Blood Pressure O2 Sat by Pulse 97 99 92 Oximetry O2 Sat by Pulse Oximetry [ Bilateral] 06/08/21 06/08/21 06/08/21 18:44 18:49 18:54 Temperature Pulse Rate 64 61 67 Respiratory Rate Blood Pressure O2 Sat by Pulse 100 100 100 Oximetry O2 Sat by Pulse Oximetry [ Bilateral] 06/08/21 06/08/21 06/08/21 18:59 19:04 19:09 Temperature 98.6 F Pulse Rate 68 71 67 Respiratory 17 Rate Blood Pressure O2 Sat by Pulse 100 100 100 Oximetry O2 Sat by Pulse 100 Oximetry [ Bilateral] 06/08/21 06/08/21 06/08/21 19:14 19:19 19:24 Temperature Pulse Rate 65 74 67 Respiratory Rate Blood Pressure O2 Sat by Pulse 100 100 100 Oximetry O2 Sat by Pulse Oximetry [ Bilateral] 06/08/21 06/08/21 06/08/21 19:29 19:34 19:39 Temperature Pulse Rate 73 86 83 Respiratory Rate Blood Pressure 93/59 O2 Sat by Pulse 100 100 100 Oximetry O2 Sat by Pulse Oximetry [ Bilateral] 06/08/21 06/08/21 06/08/21 19:44 19:49 19:54 Temperature Pulse Rate 65 85 78 Respiratory Rate Blood Pressure O2 Sat by Pulse 100 100 100 Oximetry O2 Sat by Pulse Oximetry [ Bilateral] 06/08/21 06/08/21 06/08/21 19:59 20:04 20:09 Temperature Pulse Rate 82 65 65 Respiratory Rate Blood Pressure O2 Sat by Pulse 100 100 100 Oximetry O2 Sat by Pulse Oximetry [ Bilateral] 06/08/21 06/08/21 06/08/21 20:14 20:19 20:24 Temperature Pulse Rate 62 71 63 Respiratory Rate Blood Pressure O2 Sat by Pulse 100 100 100 Oximetry O2 Sat by Pulse Oximetry [ Bilateral] 06/08/21 06/08/21 06/08/21 20:29 20:34 20:39 Temperature Pulse Rate 66 74 67 Respiratory Rate Blood Pressure 104/59 O2 Sat by Pulse 100 100 100 Oximetry O2 Sat by Pulse Oximetry [ Bilateral] 06/08/21 06/08/21 06/08/21 20:44 20:47 20:49 Temperature Pulse Rate 68 90 89 Respiratory Rate Blood Pressure O2 Sat by Pulse 100 91 100 Oximetry O2 Sat by Pulse Oximetry [ Bilateral] 06/08/21 06/08/21 06/08/21 20:54 20:59 21:04 Temperature Pulse Rate 87 109 H 89 Respiratory Rate Blood Pressure O2 Sat by Pulse 100 100 100 Oximetry O2 Sat by Pulse Oximetry [ Bilateral] 06/08/21 06/08/21 06/08/21 21:09 21:14 21:19 Temperature Pulse Rate 73 76 75 Respiratory Rate Blood Pressure O2 Sat by Pulse 100 100 100 Oximetry O2 Sat by Pulse Oximetry [ Bilateral] 06/08/21 06/08/21 06/08/21 21:24 21:29 21:30 Temperature Pulse Rate 72 80 76 Respiratory Rate Blood Pressure 116/59 O2 Sat by Pulse 100 97 Oximetry O2 Sat by Pulse Oximetry [ Bilateral] 06/08/21 06/08/21 06/08/21 21:34 21:35 21:39 Temperature Pulse Rate 72 80 70 Respiratory Rate Blood Pressure O2 Sat by Pulse 100 0 L 100 Oximetry O2 Sat by Pulse Oximetry [ Bilateral] 06/08/21 06/08/21 06/08/21 21:44 21:49 21:54 Temperature Pulse Rate 73 77 78 Respiratory Rate Blood Pressure O2 Sat by Pulse 100 100 100 Oximetry O2 Sat by Pulse Oximetry [ Bilateral] 06/08/21 06/08/21 21:59 22:04 Temperature 100 F H Pulse Rate 92 H 82 Respiratory Rate Blood Pressure O2 Sat by Pulse 100 91 Oximetry O2 Sat by Pulse Oximetry [ Bilateral] - Exam Abdomen: Present: normal appearance Vulva: both: normal Uterus: Present: normal FHR: auscultation normal, category 1 Uterine Contraction Monitor Mode: Internal Cervical Dilatation: 8 Cervical Effacement Percentage: 90 station: 0 Uterine Contraction Pattern: Regular Uterine Tone Measurement Phase: Contraction Uterine Contraction Intensity: Moderate - Labs Labs: Abnormal Labs 06/06/21 16:56 MCV 98 H MCH 33 H
--- NOTE | 2021-06-08 23:38 | Event Note ---
Date: 06/08/21 pt is now febrile, oral temp 102.2. Will start ampicillin, cleocin and gent. Discussed with patient and s/o, all questions addressed. Pt does not feel pressure at this time. Will hold off exam since nurse checked patient recently. Dr. greco made aware. Will recheck in 1 hour.
[2021-06-08] MEDS ORDERED: AMPICILLIN/NS 2 GM/100 ML 2 GM/100 ML BAG IV SCH (23:45)
[2021-06-08] MEDS ORDERED: GENTAMICIN/NS 100 MG/100 ML 100 MG/100 ML BAG IV SCH (23:45)
[2021-06-09] MEDS ORDERED: FAMOTIDINE 20 MG/2 ML INJ IV ONE (00:15)
[2021-06-09] MEDS ORDERED: METOCLOPRAMIDE 10 MG/2 ML INJ IV ONE (00:15)
[2021-06-09] MEDS ORDERED: LACTATED RINGERS 1,000 ML IV SCH (00:15)
[2021-06-09] MEDS ORDERED: BICITRA ORAL LIQD 30ML PO ONE (00:15)
--- NOTE | 2021-06-09 00:28 | Progress Note ---
Assessment and Plan no change in SVE, FHT now tachy 170's-180's. c/s called, patient agrees with plan of care. pt consented; c/s is a major abdominal surgery; there is a possibility of injury to surrounding organs; she could need a blood transfusion; she might need to have a c/s for all future deliveries. Pre-op orders in EMR. Dr. Prieto in route. - Patient Problems (1) 41 weeks gestation of Onset Date: ~06/06/21 Current Visit: Yes Status: Acute (2) Post-dates Onset Date: ~06/06/21 Current Visit: Yes Status: Acute Qualifiers: Post-term type: 40-42 weeks gestation Qualified Code(s): O48.0 - Post-term (3) Fever Current Visit: Yes Status: Acute Subjective - Subjective Date of service: 06/09/21 Principal diagnosis: IUP@ 41wk+4; IOL postterm Patient reports: no new complaints (comfortable s/p epidural) Objective - Vital Signs Vital Signs: Vital Signs - 12hr 06/08/21 06/08/21 06/08/21 12:23 12:24 12:28 Temperature Pulse Rate 83 87 80 Respiratory Rate Blood Pressure 105/68 O2 Sat by Pulse 97 99 Oximetry O2 Sat by Pulse Oximetry [ Bilateral] 06/08/21 06/08/21 06/08/21 12:29 12:33 12:35 Temperature Pulse Rate 82 84 78 Respiratory Rate Blood Pressure 109/70 O2 Sat by Pulse 93 95 Oximetry O2 Sat by Pulse Oximetry [ Bilateral] 06/08/21 06/08/21 06/08/21 12:37 12:38 12:39 Temperature Pulse Rate 80 78 78 Respiratory Rate Blood Pressure 107/69 107/68 O2 Sat by Pulse 99 Oximetry O2 Sat by Pulse Oximetry [ Bilateral] 06/08/21 06/08/21 06/08/21 12:41 12:43 12:45 Temperature Pulse Rate 75 82 78 Respiratory Rate Blood Pressure 102/65 104/66 119/78 O2 Sat by Pulse 97 Oximetry O2 Sat by Pulse Oximetry [ Bilateral] 06/08/21 06/08/21 06/08/21 12:47 12:48 12:49 Temperature Pulse Rate 85 80 73 Respiratory Rate Blood Pressure 113/67 111/73 O2 Sat by Pulse 95 Oximetry O2 Sat by Pulse Oximetry [ Bilateral] 06/08/21 06/08/21 06/08/21 12:51 12:53 12:55 Temperature Pulse Rate 82 81 81 Respiratory Rate Blood Pressure 108/69 112/75 104/69 O2 Sat by Pulse 97 Oximetry O2 Sat by Pulse Oximetry [ Bilateral] 06/08/21 06/08/21 06/08/21 12:57 12:58 12:59 Temperature Pulse Rate 76 83 78 Respiratory Rate Blood Pressure 109/70 113/75 O2 Sat by Pulse 100 Oximetry O2 Sat by Pulse Oximetry [ Bilateral] 06/08/21 06/08/21 06/08/21 13:01 13:03 13:05 Temperature Pulse Rate 75 82 78 Respiratory Rate Blood Pressure 105/72 103/73 104/70 O2 Sat by Pulse 100 Oximetry O2 Sat by Pulse Oximetry [ Bilateral] 06/08/21 06/08/21 06/08/21 13:07 13:08 13:09 Temperature Pulse Rate 78 85 80 Respiratory Rate Blood Pressure 103/70 105/73 O2 Sat by Pulse 98 Oximetry O2 Sat by Pulse Oximetry [ Bilateral] 06/08/21 06/08/21 06/08/21 13:12 13:13 13:15 Temperature Pulse Rate 90 90 96 H Respiratory Rate Blood Pressure 145/65 118/64 121/59 O2 Sat by Pulse 96 Oximetry O2 Sat by Pulse Oximetry [ Bilateral] 06/08/21 06/08/21 06/08/21 13:17 13:18 13:19 Temperature Pulse Rate 93 H 100 H 75 Respiratory Rate Blood Pressure 96/70 104/59 O2 Sat by Pulse 97 Oximetry O2 Sat by Pulse Oximetry [ Bilateral] 06/08/21 06/08/21 06/08/21 13:21 13:23 13:25 Temperature Pulse Rate 82 84 78 Respiratory Rate Blood Pressure 110/61 115/63 115/64 O2 Sat by Pulse 96 Oximetry O2 Sat by Pulse Oximetry [ Bilateral] 06/08/21 06/08/21 06/08/21 13:27 13:28 13:29 Temperature Pulse Rate 82 80 75 Respiratory Rate Blood Pressure 115/63 108/57 O2 Sat by Pulse 98 Oximetry O2 Sat by Pulse Oximetry [ Bilateral] 06/08/21 06/08/21 06/08/21 13:31 13:33 13:35 Temperature Pulse Rate 89 88 83 Respiratory Rate Blood Pressure 101/65 104/64 99/59 O2 Sat by Pulse 98 Oximetry O2 Sat by Pulse Oximetry [ Bilateral] 06/08/21 06/08/21 06/08/21 13:36 13:37 13:38 Temperature Pulse Rate 85 73 80 Respiratory Rate Blood Pressure 104/59 O2 Sat by Pulse 93 95 Oximetry O2 Sat by Pulse Oximetry [ Bilateral] 06/08/21 06/08/21 06/08/21 13:39 13:41 13:43 Temperature Pulse Rate 75 80 79 Respiratory Rate Blood Pressure 102/62 102/59 103/61 O2 Sat by Pulse 95 Oximetry O2 Sat by Pulse Oximetry [ Bilateral] 06/08/21 06/08/21 06/08/21 13:44 13:45 13:47 Temperature Pulse Rate 72 76 83 Respiratory Rate Blood Pressure 105/62 104/65 O2 Sat by Pulse 93 Oximetry O2 Sat by Pulse Oximetry [ Bilateral] 06/08/21 06/08/21 06/08/21 13:48 13:49 13:51 Temperature Pulse Rate 77 67 73 Respiratory Rate Blood Pressure 106/60 104/61 O2 Sat by Pulse 98 Oximetry O2 Sat by Pulse Oximetry [ Bilateral] 06/08/21 06/08/21 06/08/21 13:53 13:55 13:57 Temperature Pulse Rate 76 74 71 Respiratory Rate Blood Pressure 108/61 109/67 104/65 O2 Sat by Pulse 96 Oximetry O2 Sat by Pulse Oximetry [ Bilateral] 06/08/21 06/08/21 06/08/21 13:58 13:59 14:01 Temperature Pulse Rate 71 74 71 Respiratory Rate Blood Pressure 107/66 104/65 O2 Sat by Pulse 99 Oximetry O2 Sat by Pulse Oximetry [ Bilateral] 06/08/21 06/08/21 06/08/21 14:03 14:05 14:07 Temperature Pulse Rate 80 82 75 Respiratory Rate Blood Pressure 124/80 118/62 106/54 O2 Sat by Pulse 99 Oximetry O2 Sat by Pulse Oximetry [ Bilateral] 06/08/21 06/08/21 06/08/21 14:08 14:09 14:11 Temperature Pulse Rate 76 70 78 Respiratory Rate Blood Pressure 105/55 102/55 O2 Sat by Pulse 100 Oximetry O2 Sat by Pulse Oximetry [ Bilateral] 06/08/21 06/08/21 06/08/21 14:13 14:15 14:17 Temperature Pulse Rate 70 72 81 Respiratory Rate Blood Pressure 97/58 99/62 109/71 O2 Sat by Pulse 98 Oximetry O2 Sat by Pulse Oximetry [ Bilateral] 06/08/21 06/08/21 06/08/21 14:18 14:19 14:21 Temperature Pulse Rate 74 74 86 Respiratory Rate Blood Pressure 110/63 110/64 O2 Sat by Pulse 98 Oximetry O2 Sat by Pulse Oximetry [ Bilateral] 06/08/21 06/08/21 06/08/21 14:23 14:25 14:27 Temperature Pulse Rate 76 73 71 Respiratory Rate Blood Pressure 107/60 112/67 112/69 O2 Sat by Pulse 98 Oximetry O2 Sat by Pulse Oximetry [ Bilateral] 06/08/21 06/08/21 06/08/21 14:28 14:33 14:38 Temperature Pulse Rate 71 80 91 H Respiratory Rate Blood Pressure O2 Sat by Pulse 98 97 95 Oximetry O2 Sat by Pulse Oximetry [ Bilateral] 06/08/21 06/08/21 06/08/21 14:43 14:48 14:53 Temperature Pulse Rate 77 73 73 Respiratory Rate Blood Pressure O2 Sat by Pulse 98 98 97 Oximetry O2 Sat by Pulse Oximetry [ Bilateral] 06/08/21 06/08/21 06/08/21 14:58 15:03 15:08 Temperature Pulse Rate 75 71 76 Respiratory Rate Blood Pressure O2 Sat by Pulse 97 97 98 Oximetry O2 Sat by Pulse Oximetry [ Bilateral] 06/08/21 06/08/21 06/08/21 15:13 15:18 15:23 Temperature Pulse Rate 72 74 75 Respiratory Rate Blood Pressure O2 Sat by Pulse 97 96 97 Oximetry O2 Sat by Pulse Oximetry [ Bilateral] 06/08/21 06/08/21 06/08/21 15:28 15:29 15:33 Temperature Pulse Rate 77 79 70 Respiratory Rate Blood Pressure 88/54 O2 Sat by Pulse 97 96 Oximetry O2 Sat by Pulse Oximetry [ Bilateral] 06/08/21 06/08/21 06/08/21 15:38 15:43 15:48 Temperature Pulse Rate 74 75 84 Respiratory Rate Blood Pressure O2 Sat by Pulse 97 96 96 Oximetry O2 Sat by Pulse Oximetry [ Bilateral] 06/08/21 06/08/21 06/08/21 15:53 15:58 16:03 Temperature Pulse Rate 89 75 80 Respiratory Rate Blood Pressure O2 Sat by Pulse 95 95 96 Oximetry O2 Sat by Pulse Oximetry [ Bilateral] 06/08/21 06/08/21 06/08/21 16:06 16:08 16:13 Temperature Pulse Rate 83 78 75 Respiratory Rate Blood Pressure O2 Sat by Pulse 93 95 97 Oximetry O2 Sat by Pulse Oximetry [ Bilateral] 06/08/21 06/08/21 06/08/21 16:18 16:23 16:28 Temperature Pulse Rate 74 72 79 Respiratory Rate Blood Pressure O2 Sat by Pulse 96 94 98 Oximetry O2 Sat by Pulse Oximetry [ Bilateral] 06/08/21 06/08/21 06/08/21 16:30 16:33 16:37 Temperature Pulse Rate 75 91 H 75 Respiratory Rate Blood Pressure 124/66 O2 Sat by Pulse 91 97 Oximetry O2 Sat by Pulse Oximetry [ Bilateral] 06/08/21 06/08/21 06/08/21 16:38 16:39 16:43 Temperature 98.8 F Pulse Rate 74 88 Respiratory 18 Rate Blood Pressure O2 Sat by Pulse 95 96 Oximetry O2 Sat by Pulse Oximetry [ Bilateral] 06/08/21 06/08/21 06/08/21 16:47 16:48 16:53 Temperature Pulse Rate 74 72 74 Respiratory Rate Blood Pressure O2 Sat by Pulse 93 96 96 Oximetry O2 Sat by Pulse Oximetry [ Bilateral] 06/08/21 06/08/21 06/08/21 16:58 17:03 17:08 Temperature Pulse Rate 69 73 73 Respiratory Rate Blood Pressure O2 Sat by Pulse 95 97 94 Oximetry O2 Sat by Pulse Oximetry [ Bilateral] 06/08/21 06/08/21 06/08/21 17:10 17:13 17:18 Temperature Pulse Rate 75 70 72 Respiratory Rate Blood Pressure O2 Sat by Pulse 92 96 95 Oximetry O2 Sat by Pulse Oximetry [ Bilateral] 06/08/21 06/08/21 06/08/21 17:23 17:25 17:29 Temperature Pulse Rate 70 88 73 Respiratory Rate Blood Pressure 112/58 O2 Sat by Pulse 93 93 97 Oximetry O2 Sat by Pulse Oximetry [ Bilateral] 06/08/21 06/08/21 06/08/21 17:34 17:39 17:42 Temperature Pulse Rate 77 84 83 Respiratory Rate Blood Pressure O2 Sat by Pulse 97 94 89 Oximetry O2 Sat by Pulse Oximetry [ Bilateral] 06/08/21 06/08/21 06/08/21 17:44 17:49 17:50 Temperature Pulse Rate 79 82 81 Respiratory Rate Blood Pressure O2 Sat by Pulse 100 98 92 Oximetry O2 Sat by Pulse Oximetry [ Bilateral] 06/08/21 06/08/21 06/08/21 17:54 17:59 18:04 Temperature Pulse Rate 73 78 76 Respiratory Rate Blood Pressure O2 Sat by Pulse 99 99 99 Oximetry O2 Sat by Pulse Oximetry [ Bilateral] 06/08/21 06/08/21 06/08/21 18:09 18:14 18:19 Temperature Pulse Rate 84 75 67 Respiratory Rate Blood Pressure O2 Sat by Pulse 96 98 99 Oximetry O2 Sat by Pulse Oximetry [ Bilateral] 06/08/21 06/08/21 06/08/21 18:24 18:29 18:30 Temperature Pulse Rate 65 67 70 Respiratory Rate Blood Pressure 106/56 O2 Sat by Pulse 98 97 Oximetry O2 Sat by Pulse Oximetry [ Bilateral] 06/08/21 06/08/21 06/08/21 18:34 18:39 18:41 Temperature Pulse Rate 69 71 80 Respiratory Rate Blood Pressure O2 Sat by Pulse 97 99 92 Oximetry O2 Sat by Pulse Oximetry [ Bilateral] 06/08/21 06/08/21 06/08/21 18:44 18:49 18:54 Temperature Pulse Rate 64 61 67 Respiratory Rate Blood Pressure O2 Sat by Pulse 100 100 100 Oximetry O2 Sat by Pulse Oximetry [ Bilateral] 06/08/21 06/08/21 06/08/21 18:59 19:04 19:09 Temperature 98.6 F Pulse Rate 68 71 67 Respiratory 17 Rate Blood Pressure O2 Sat by Pulse 100 100 100 Oximetry O2 Sat by Pulse 100 Oximetry [ Bilateral] 06/08/21 06/08/21 06/08/21 19:14 19:19 19:24 Temperature Pulse Rate 65 74 67 Respiratory Rate Blood Pressure O2 Sat by Pulse 100 100 100 Oximetry O2 Sat by Pulse Oximetry [ Bilateral] 06/08/21 06/08/21 06/08/21 19:29 19:34 19:39 Temperature Pulse Rate 73 86 83 Respiratory Rate Blood Pressure 93/59 O2 Sat by Pulse 100 100 100 Oximetry O2 Sat by Pulse Oximetry [ Bilateral] 06/08/21 06/08/21 06/08/21 19:44 19:49 19:54 Temperature Pulse Rate 65 85 78 Respiratory Rate Blood Pressure O2 Sat by Pulse 100 100 100 Oximetry O2 Sat by Pulse Oximetry [ Bilateral] 06/08/21 06/08/21 06/08/21 19:59 20:04 20:09 Temperature Pulse Rate 82 65 65 Respiratory Rate Blood Pressure O2 Sat by Pulse 100 100 100 Oximetry O2 Sat by Pulse Oximetry [ Bilateral] 06/08/21 06/08/21 06/08/21 20:14 20:19 20:24 Temperature Pulse Rate 62 71 63 Respiratory Rate Blood Pressure O2 Sat by Pulse 100 100 100 Oximetry O2 Sat by Pulse Oximetry [ Bilateral] 06/08/21 06/08/21 06/08/21 20:29 20:34 20:39 Temperature Pulse Rate 66 74 67 Respiratory Rate Blood Pressure 104/59 O2 Sat by Pulse 100 100 100 Oximetry O2 Sat by Pulse Oximetry [ Bilateral] 06/08/21 06/08/21 06/08/21 20:44 20:47 20:49 Temperature Pulse Rate 68 90 89 Respiratory Rate Blood Pressure O2 Sat by Pulse 100 91 100 Oximetry O2 Sat by Pulse Oximetry [ Bilateral] 06/08/21 06/08/21 06/08/21 20:54 20:59 21:04 Temperature Pulse Rate 87 109 H 89 Respiratory Rate Blood Pressure O2 Sat by Pulse 100 100 100 Oximetry O2 Sat by Pulse Oximetry [ Bilateral] 06/08/21 06/08/21 06/08/21 21:09 21:14 21:19 Temperature Pulse Rate 73 76 75 Respiratory Rate Blood Pressure O2 Sat by Pulse 100 100 100 Oximetry O2 Sat by Pulse Oximetry [ Bilateral] 06/08/21 06/08/21 06/08/21 21:24 21:29 21:30 Temperature Pulse Rate 72 80 76 Respiratory Rate Blood Pressure 116/59 O2 Sat by Pulse 100 97 Oximetry O2 Sat by Pulse Oximetry [ Bilateral] 06/08/21 06/08/21 06/08/21 21:34 21:35 21:39 Temperature Pulse Rate 72 80 70 Respiratory Rate Blood Pressure O2 Sat by Pulse 100 0 L 100 Oximetry O2 Sat by Pulse Oximetry [ Bilateral] 06/08/21 06/08/21 06/08/21 21:44 21:49 21:54 Temperature Pulse Rate 73 77 78 Respiratory Rate Blood Pressure O2 Sat by Pulse 100 100 100 Oximetry O2 Sat by Pulse Oximetry [ Bilateral] 06/08/21 06/08/21 06/08/21 21:59 22:04 22:05 Temperature 100 F H Pulse Rate 92 H 82 106 H Respiratory Rate Blood Pressure O2 Sat by Pulse 100 91 85 Oximetry O2 Sat by Pulse Oximetry [ Bilateral] 06/08/21 06/08/21 06/08/21 22:09 22:14 22:19 Temperature Pulse Rate 88 71 97 H Respiratory Rate Blood Pressure O2 Sat by Pulse 100 100 100 Oximetry O2 Sat by Pulse Oximetry [ Bilateral] 06/08/21 06/08/21 06/08/21 22:24 22:29 22:34 Temperature Pulse Rate 82 102 H 87 Respiratory Rate Blood Pressure O2 Sat by Pulse 100 100 100 Oximetry O2 Sat by Pulse Oximetry [ Bilateral] 06/08/21 06/08/21 06/08/21 22:39 22:44 22:49 Temperature Pulse Rate 81 95 H 90 Respiratory Rate Blood Pressure O2 Sat by Pulse 100 100 97 Oximetry O2 Sat by Pulse Oximetry [ Bilateral] 06/08/21 06/08/21 06/08/21 22:54 22:59 23:04 Temperature Pulse Rate 81 81 83 Respiratory Rate Blood Pressure O2 Sat by Pulse 100 100 100 Oximetry O2 Sat by Pulse Oximetry [ Bilateral] 06/08/21 06/08/21 06/08/21 23:09 23:13 23:14 Temperature 102.2 F H Pulse Rate 87 86 Respiratory Rate Blood Pressure O2 Sat by Pulse 100 100 Oximetry O2 Sat by Pulse Oximetry [ Bilateral] 06/08/21 06/08/21 06/08/21 23:19 23:24 23:29 Temperature Pulse Rate 79 81 82 Respiratory Rate Blood Pressure 127/58 O2 Sat by Pulse 100 100 100 Oximetry O2 Sat by Pulse Oximetry [ Bilateral] 06/08/21 06/08/21 06/08/21 23:34 23:39 23:44 Temperature Pulse Rate 80 85 91 H Respiratory Rate Blood Pressure O2 Sat by Pulse 100 100 100 Oximetry O2 Sat by Pulse Oximetry [ Bilateral] 06/08/21 06/08/21 06/08/21 23:49 23:54 23:56 Temperature 101.9 F H Pulse Rate 99 H 85 Respiratory Rate Blood Pressure O2 Sat by Pulse 99 98 Oximetry O2 Sat by Pulse Oximetry [ Bilateral] 06/08/21 06/09/21 06/09/21 23:59 00:04 00:09 Temperature Pulse Rate 89 81 98 H Respiratory Rate Blood Pressure O2 Sat by Pulse 97 96 96 Oximetry O2 Sat by Pulse Oximetry [ Bilateral] 06/09/21 00:14 Temperature Pulse Rate 85 Respiratory Rate Blood Pressure O2 Sat by Pulse 100 Oximetry O2 Sat by Pulse Oximetry [ Bilateral] - Exam Uterine Contraction Monitor Mode: Internal Cervical Dilatation: 8 Cervical Effacement Percentage: 100 station: 0 - Labs Labs: Abnormal Labs 06/06/21 16:56 MCV 98 H MCH 33 H
[2021-06-09] MEDS ORDERED: NALOXONE 0.4 MG/1 ML INJ IV PRN ×2 (00:29→04:08)
[2021-06-09] MEDS ORDERED: PROMETHAZINE 25 MG TAB PO PRN (00:29)
[2021-06-09] MEDS ORDERED: HYDROmorphone 1 MG/1 ML INJ IV PRN (00:29)
[2021-06-09] MEDS ORDERED: PROMETHAZINE 25 MG RECT SUPP PR PRN (00:29)
--- NOTE | 2021-06-09 00:31 | Anesthesia Day of Surgery ---
Anesthesia Day of Surgery - Day of Surgery Patient Examined: Yes Patient H&P Reviewed: Yes Patient is NPO: Yes Beta Blockers: No Cardiac Clearance: No Pulmonary Clearance: No Demetrius's Test: N/A
[2021-06-09] MEDS ORDERED: LIDOCAINE 2%/EPINEPHRINE 1:200,000 VIAL (20 ML) INFILTRATI ONE (00:32)
--- NOTE | 2021-06-09 00:50 | Event Note ---
Date: 06/09/21 Discussed indication for section. Patient informed the risks of the surgery include bleeding possibly bleeding heavy enough to require blood transfusion, infection possible damage to bowel bladder ureter. All questions answered. Patient agrees to proceed
[2021-06-09] MEDS ORDERED: ceFAZolin/Water 2 GM/20 ML 2 GM/20 ML SYRINGE IV NR (01:00)
[2021-06-09] MEDS ORDERED: ceFAZolin/STERILE WATER 2 GM/20 ML SYRINGE IV ONE (01:07)
[2021-06-09] MEDS ORDERED: WATER FOR IRRIG STERILE 1,500 ML BOTTLE IR ONE (01:10)
[2021-06-09] MEDS ORDERED: SODIUM CHLORIDE 0.9% IRR 1,500 ML BOTTLE IR ONE (01:10)
[2021-06-09] MEDS ORDERED: PHENYLEPHRINE/NS 1,000 MCG/10 ML SYRINGE (OR USE) IV ONE (01:17)
[2021-06-09] MEDS ORDERED: dexAMETHasone 20 MG/5 ML VIAL ONE (01:17)
[2021-06-09] MEDS ORDERED: ONDANSETRON 4 MG/2 ML INJ ONE (01:17)
[2021-06-09] MEDS ORDERED: KETOROLAC 30 MG/1 ML INJ ONE (01:47)
--- NOTE | 2021-06-09 02:06 | Operative Report ---
Operative Report Operative Report: Date of procedure: June 09, 2021 Pre-operative diagnosis: Intrauterine at 41 weeks with arrest of dilatation, maternal fever and tachycardia with possible chorioamnionitis Post-operative diagnosis: Same Procedure name(s): Primary low transverse section Surgeon: Charles Prieto MD Academic Advising Director: Rochelle Denton certified nurse manager inpatient Anesthesia: Epidural EBL: [id number] Complications: None Findings: Patient with a normal uterus tubes and ovaries bilaterally. with the occipital posterior area presentation. Nuchal cord x1. Weight 7 pounds 4 ounces Apgars 8 at 1 minute and 9 at 5 minutes. Specimen(s): None Procedure: The patient was brought to the operating room. Her epidural was dosed was placed without any complications. She was then placed in left lateral tilt. Prepped and draped in the usual sterile manner. After testing for adequate anesthesia level, a Pfannenstiel incision was made. This incision was taken down to the fascia. The fascia was then nicked in the midline. This incision was extended out laterally with Forrest scissors. The fascia was then sharply and bluntly from the underlying rectus muscles. The rectus muscles were bluntly and sharply . The peritoneum was then entered with the corrugated box machine operator's fingers. This incision was spread vertically with care not to damage the bladder below. The Chidi self-retaining tractor was then placed without any difficulty. The bladder flap was then formed sharply and bluntly with Metzenbaum scissors. A transverse incision was made in lower uterine segment. This incision was extended laterally with the operators fingers. The amniotic sac was then entered bluntly with the corrugated box machine operator's fingers. The was delivered from the vertex position. Bulb suction on the mother's abdomen. Cord was double clamped and cut. The infant was then passed to the nursery personnel who were in attendance. The above scores were given by the nursery personnel and then it was noted that did have a laceration on t his left cheek. The placenta was then bluntly removed. The uterus was then externalized and wiped clean the remaining products. The uterine incision was closed in layers. The first incision was closed in a locking manner using 0 Vicryl. This was followed by imbricating stitch also with 0 Vicryl. This closure was hemostatic. The bladder flap was copiously irrigated and found to be hemostatic. The pelvis was copiously irrigated and found to be hemostatic. The uterus was then placed back to the patient's abdomen. The retractors were removed. The rectus muscles were inspected and found to be hemostatic. The fascia was then closed in a running manner using 0 Vicryl. This incision was hemostatic irrigation Bovie. The cuticular space was closed with 0 Vicryl. The skin was reapproximated with 4-0 Vicryl subcuticularly. The patient tolerated procedure well. Her urine was clear. The infant was admitted to the well baby nursery. The patient was accompanied to recovery room in good condition. Instrument count correct times 3.
--- NOTE | 2021-06-09 02:19 | Progress Note ---
Regional Anesthesia Block - Regional Anesthesia Block Start Time: 01:57 Stop Time: 02:07 Performed By:: JUAN CARRENO Procedure: Patient consented for TAP block for post surgical pain management. Patient identified, monitors placed, and time out performed. Mid axillary TAP identified bilaterally via ultrasound. Skin prepped bilaterally with [chlorhexidine] and [20g stimuplex] needle advanced to the TAP. 30ml [Marcaine 0.25% with 25mcg Precedex and Decadron 5mg] injected under ultrasound guidance on the [left] side. 30ml [Marcaine 0.25% with 25mcg Precedex and Decadron 5mg] injected under ultrasound guidance on the [right] side. Negative aspiration every 5mL, Patient tolerated the procedure well. No apparent complications seen.
[2021-06-09] MEDS ORDERED: oxyCODONE /ACETAMINOPHEN 5-325MG TAB PO PRN (04:08)
[2021-06-09] MEDS ORDERED: MAGNESIUM HYDROXIDE (MOM) ORAL LIQD UDC PO PRN (04:08)
[2021-06-09] MEDS ORDERED: WITCH HAZEL/ GLYCERIN PAD TP PRN (04:08)
[2021-06-09] MEDS ORDERED: MORPHINE 4 MG/1 ML INJ IV PRN (04:08)
[2021-06-09] MEDS ORDERED: KETOROLAC 30 MG/1 ML INJ IV PRN (04:08)
[2021-06-09] MEDS ORDERED: LANOLIN/ZINC/DIMETHICONE (LANSINOH) 7 GM TP PRN (04:08)
[2021-06-09] MEDS ORDERED: SIMETHICONE 80 MG CHEW TAB PO PRN (04:08)
[2021-06-09] MEDS: ceFAZolin/NS 1 GM/50 ML 1 GM/50 ML BAG IV SCH ×2 (08:32→17:35)
[2021-06-09] MEDS: PRENATAL VIT27-FE FUMARATE-FOLIC ACID VIT TAB PO SCH (09:40)
--- NOTE | 2021-06-09 09:54 | Progress Note ---
Assessment and Plan Pt sitting in bed. No complaints voiced. Infant swaddled in bassinet and FOB at bedside. VSS, Soliman draining clear yellow urine to gravity, incision clean dry and intact, postop H&H to be drawn as ordered. Precautions and POC reviewed. Pt reports desires for to be circumcised. All questions and concerns addressed. Continue postop pathway. - Patient Problems (1) delivery delivered Current Visit: Yes Status: Acute Subjective - Subjective Date of service: 06/09/21 Principal diagnosis: POD #0, section delivered Patient reports: appetite normal, pain well controlled, no nauseated [place]: doing well Objective - Vital Signs Latest vital signs: Vital Signs Temp Pulse Resp BP BP Pulse Ox Pulse Ox 06/09/21 03:30 96 06/09/21 03:15 98.8 F 79 18 96/44 95 06/09/21 03:00 79 18 88/41 95 06/09/21 02:45 89 17 97/55 94 06/09/21 02:30 89 19 92/47 94 06/09/21 02:25 76 14 90/50 94 06/09/21 02:20 84 9 L 94/54 94 06/09/21 02:15 99 F 84 10 L 102/59 95 06/09/21 00:49 90 98 06/09/21 00:44 84 97 06/09/21 00:39 86 98 06/09/21 00:34 88 97 06/09/21 00:30 86 106/61 06/09/21 00:29 97 H 98 06/09/21 00:24 86 99 06/09/21 00:19 91 H 100 06/09/21 00:14 85 100 06/09/21 00:09 98 H 96 06/09/21 00:04 81 96 06/08/21 23:59 89 97 06/08/21 23:56 101.9 F H 06/08/21 23:54 85 98 06/08/21 23:49 99 H 99 06/08/21 23:44 91 H 100 06/08/21 23:39 85 100 06/08/21 23:34 80 100 06/08/21 23:29 82 127/58 100 06/08/21 23:24 81 100 06/08/21 23:19 79 100 06/08/21 23:14 86 100 06/08/21 23:13 102.2 F H 06/08/21 23:09 87 100 06/08/21 23:04 83 100 06/08/21 22:59 81 100 06/08/21 22:54 81 100 06/08/21 22:49 90 97 06/08/21 22:44 95 H 100 06/08/21 22:39 81 100 06/08/21 22:34 87 100 06/08/21 22:29 102 H 100 06/08/21 22:24 82 100 06/08/21 22:19 97 H 100 06/08/21 22:14 71 100 06/08/21 22:09 88 100 06/08/21 22:05 106 H 85 06/08/21 22:04 82 91 06/08/21 21:59 100 F H 92 H 100 06/08/21 21:54 78 100 06/08/21 21:49 77 100 06/08/21 21:44 73 100 06/08/21 21:39 70 100 06/08/21 21:35 80 0 L 06/08/21 21:34 72 100 06/08/21 21:30 76 116/59 06/08/21 21:29 80 97 06/08/21 21:24 72 100 06/08/21 21:19 75 100 06/08/21 21:14 76 100 06/08/21 21:09 73 100 06/08/21 21:04 89 100 06/08/21 20:59 109 H 100 06/08/21 20:54 87 100 06/08/21 20:49 89 100 06/08/21 20:47 90 91 06/08/21 20:44 68 100 06/08/21 20:39 67 100 06/08/21 20:34 74 100 06/08/21 20:29 66 104/59 100 06/08/21 20:24 63 100 06/08/21 20:19 71 100 06/08/21 20:14 62 100 06/08/21 20:09 65 100 06/08/21 20:04 65 100 06/08/21 19:59 82 100 06/08/21 19:54 78 100 06/08/21 19:49 85 100 06/08/21 19:44 65 100 06/08/21 19:39 83 100 06/08/21 19:34 86 100 06/08/21 19:29 73 93/59 100 06/08/21 19:24 67 100 06/08/21 19:19 74 100 06/08/21 19:14 65 100 06/08/21 19:09 67 100 06/08/21 19:04 71 100 06/08/21 18:59 98.6 F 68 17 100 100 06/08/21 18:54 67 100 06/08/21 18:49 61 100 06/08/21 18:44 64 100 06/08/21 18:41 80 92 06/08/21 18:39 71 99 06/08/21 18:34 69 97 06/08/21 18:30 70 106/56 06/08/21 18:29 67 97 06/08/21 18:24 65 98 06/08/21 18:19 67 99 06/08/21 18:14 75 98 06/08/21 18:09 84 96 06/08/21 18:04 76 99 06/08/21 17:59 78 99 06/08/21 17:54 73 99 06/08/21 17:50 81 92 06/08/21 17:49 82 98 06/08/21 17:44 79 100 06/08/21 17:42 83 89 06/08/21 17:39 84 94 06/08/21 17:34 77 97 06/08/21 17:29 73 112/58 97 06/08/21 17:25 88 93 06/08/21 17:23 70 93 06/08/21 17:18 72 95 06/08/21 17:13 70 96 06/08/21 17:10 75 92 06/08/21 17:08 73 94 06/08/21 17:03 73 97 06/08/21 16:58 69 95 06/08/21 16:53 74 96 06/08/21 16:48 72 96 06/08/21 16:47 74 93 06/08/21 16:43 88 96 06/08/21 16:39 98.8 F 18 06/08/21 16:38 74 95 06/08/21 16:37 75 124/66 06/08/21 16:33 91 H 97 06/08/21 16:30 75 91 06/08/21 16:28 79 98 06/08/21 16:23 72 94 06/08/21 16:18 74 96 06/08/21 16:13 75 97 06/08/21 16:08 78 95 06/08/21 16:06 83 93 06/08/21 16:03 80 96 06/08/21 15:58 75 95 06/08/21 15:53 89 95 06/08/21 15:48 84 96 06/08/21 15:43 75 96 06/08/21 15:38 74 97 06/08/21 15:33 70 96 06/08/21 15:29 79 88/54 06/08/21 15:28 77 97 06/08/21 15:23 75 97 06/08/21 15:18 74 96 06/08/21 15:13 72 97 06/08/21 15:08 76 98 06/08/21 15:03 71 97 06/08/21 14:58 75 97 06/08/21 14:53 73 97 06/08/21 14:48 73 98 06/08/21 14:43 77 98 06/08/21 14:38 91 H 95 06/08/21 14:33 80 97 06/08/21 14:28 71 98 06/08/21 14:27 71 112/69 06/08/21 14:25 73 112/67 06/08/21 14:23 76 107/60 98 06/08/21 14:21 86 110/64 06/08/21 14:19 74 110/63 06/08/21 14:18 74 98 06/08/21 14:17 81 109/71 06/08/21 14:15 72 99/62 06/08/21 14:13 70 97/58 98 06/08/21 14:11 78 102/55 06/08/21 14:09 70 105/55 06/08/21 14:08 76 100 06/08/21 14:07 75 106/54 06/08/21 14:05 82 118/62 06/08/21 14:03 80 124/80 99 06/08/21 14:01 71 104/65 06/08/21 13:59 74 107/66 06/08/21 13:58 71 99 06/08/21 13:57 71 104/65 06/08/21 13:55 74 109/67 06/08/21 13:53 76 108/61 96 06/08/21 13:51 73 104/61 06/08/21 13:49 67 106/60 06/08/21 13:48 77 98 06/08/21 13:47 83 104/65 06/08/21 13:45 76 105/62 06/08/21 13:44 72 93 06/08/21 13:43 79 103/61 95 06/08/21 13:41 80 102/59 06/08/21 13:39 75 102/62 06/08/21 13:38 80 95 06/08/21 13:37 73 104/59 06/08/21 13:36 85 93 06/08/21 13:35 83 99/59 06/08/21 13:33 88 104/64 98 06/08/21 13:31 89 101/65 06/08/21 13:29 75 108/57 06/08/21 13:28 80 98 06/08/21 13:27 82 115/63 06/08/21 13:25 78 115/64 06/08/21 13:23 84 115/63 96 06/08/21 13:21 82 110/61 06/08/21 13:19 75 104/59 06/08/21 13:18 100 H 97 06/08/21 13:17 93 H 96/70 06/08/21 13:15 96 H 121/59 06/08/21 13:13 90 118/64 96 06/08/21 13:12 90 145/65 06/08/21 13:09 80 105/73 06/08/21 13:08 85 98 06/08/21 13:07 78 103/70 06/08/21 13:05 78 104/70 06/08/21 13:03 82 103/73 100 06/08/21 13:01 75 105/72 06/08/21 12:59 78 113/75 06/08/21 12:58 83 100 06/08/21 12:57 76 109/70 06/08/21 12:55 81 104/69 06/08/21 12:53 81 112/75 97 06/08/21 12:51 82 108/69 06/08/21 12:49 73 111/73 06/08/21 12:48 80 95 06/08/21 12:47 85 113/67 06/08/21 12:45 78 119/78 06/08/21 12:43 82 104/66 97 06/08/21 12:41 75 102/65 06/08/21 12:39 78 107/68 06/08/21 12:38 78 99 06/08/21 12:37 80 107/69 06/08/21 12:35 78 109/70 06/08/21 12:33 84 95 06/08/21 12:29 82 93 06/08/21 12:28 80 99 06/08/21 12:24 87 105/68 06/08/21 12:23 83 97 Intake and Output 06/08/21 06/09/21 06/09/21 23:59 07:59 15:59 Intake Total 753.745 1809 Output Total 2750 Balance 125.500 -1039 Intake: IV 927.997 4146 PITOCin/NS 30 UNIT/500ML 125.500 11 30 units In 500 ml @ 2 mls/hr IV TITR ROBERTA Rx#: [id number] Oral 200 Output: Urine 2750 Uretheral (Soliman) 1625 Other: Total, Intake Amount 100 Estimated Blood Loss 870 - Exam Breasts: Present: normal Cardiovascular: Present: Regular rate Lungs: Present: Normal air movement Abdomen: Present: normal appearance, soft Vulva: both: normal Uterus: Present: normal, firm, fundal height below umbilicus Extremities: Present: edema (1+pitting BLE) Comments: scant vaginal bleeding noted on pad
--- NOTE | 2021-06-09 11:23 | Post Anesthesia Evaluation ---
- Post Anesthesia Evaluation Patient Participated: Yes Airway Patent: Yes Stable Respiratory Function: Yes Nausea/Vomiting: No Temp > 96.8F: Yes Pain Manageable: Yes Adequeate Hydration: Yes Anesthesia Complications: No Block Receding Appropriately: Yes Patient on Ventilator: No
[2021-06-09 15:42] LABS: Hematocrit 34.7 % (30.3-42.9); Hemoglobin 11.5 gm/dl (10.1-14.3)
[2021-06-09] MEDS: IBUPROFEN 800 MG TAB PO PRN (17:14)
[2021-06-10] MEDS: IBUPROFEN 800 MG TAB PO PRN ×2 (03:28→21:48)
[2021-06-10] MEDS ORDERED: TETANUS,DIPH,PERTUSS(ACELL) VACCINE 0.5 ML SYRINGE IM ONE (06:00)
[2021-06-10] MEDS: PRENATAL VIT27-FE FUMARATE-FOLIC ACID VIT TAB PO SCH (09:28)
--- NOTE | 2021-06-10 09:42 | Progress Note ---
Assessment and Plan Pt sitting in bed. No complaints voiced. held by FOB at bedside. VSS, incision clean dry and intact, postop H&H stable; Pt reports ambulating, voiding and eating without difficulties. Precautions and POC reviewed. Pt reports no desires for BC at this time. All questions and concerns addressed. Continue postop pathway. Anticipate discharge home tmrw. - Patient Problems (1) delivery delivered Current Visit: Yes Status: Acute Subjective - Subjective Date of service: 06/10/21 Principal diagnosis: POD #1, section delivered Patient reports: appetite normal, voiding normally, pain well controlled, ambulating normally : doing well Objective - Vital Signs Latest vital signs: Vital Signs Temp Pulse Resp BP BP Pulse Ox Pulse Ox 06/10/21 07:35 98.0 F 67 16 98/58 96 06/10/21 03:28 18 06/09/21 23:18 98.5 F 67 20 95/61 98 06/09/21 19:30 99 06/09/21 17:35 98.1 F 81 18 98/60 06/09/21 17:14 16 06/09/21 13:35 98.1 F 86 18 90/57 Intake and Output 06/09/21 06/10/21 06/10/21 23:59 07:59 15:59 Intake Total 600 Output Total 900 Balance -300 Intake: Oral 360 Intake, Free Water 240 Output: Urine 900 Void 900 Other: Total, Intake Amount 360 Total, Output Amount 900 # Voids Void 1 - Exam Breasts: Present: normal Cardiovascular: Present: Regular rate Lungs: Present: Normal air movement Abdomen: Present: normal appearance, soft Vulva: both: normal Uterus: Present: normal, firm, fundal height below umbilicus Extremities: Present: normal Incision: Present: normal, dry, intact Comments: scant vaginal bleeding
--- NOTE | 2021-06-11 08:53 | Discharge Summary ---
Providers - Providers Date of Admission: 06/06/21 16:14 Date of discharge: 06/11/21 Attending physician: SWETHA SALAZAR 06/09/21 04:08 Consult to Waitstaff [CONS] Routine Reason For Exam: Primary care physician: TATUM VELOZ Hospitalization Reason for admission: induction of labor Delivery: Procedure: primary low transverse Episiotomy: none Laceration: none Incision: normal, dry, intact Other procedures: none complications: none Discharge diagnosis: IUP at term delivered baby: male Hospital course: S: Pt doing well. She is ambulating, voiding, and passing flatus okay. BC: Undecided. O: VSS. I&Os adequate. H/H 11.5/34.7. Incision open to air, intact, dry, no s/sx of infection noted. No drainage noted. Fundus firm, minimal bleeding noted. A: 25 y.o. s/p primary , now , in good condition and can be discharged home. P: Discharge home with instructions. Incision check and circumcision appointment in 1 week. Condition at discharge: Good Disposition: 01 HOME / SELF CARE / HOMELESS Plan - Discharge Medications Prescriptions: Lidocain2.5%/Prilocai2.5% [Emla] 5 gm TP ONCE #1 tube Ferrous Sulfate [Feosol 325 MG tab] 325 mg PO BID #60 tablet Ibuprofen [Motrin] 800 mg PO TID PRN #30 tablet PRN Reason: Pain oxyCODONE /ACETAMINOPHEN [Percocet 5/325 mg] 1 - 2 tab PO Q6HR PRN #20 tablet PRN Reason: Pain - Provider Discharge Summary Activity: routine, no sex for 6 weeks, no heavy lifting 4 weeks, no strenuous exercise Diet: routine Instructions: routine Additional instructions: [] Smoking cessation referral if applicable(refer to patient education folder for contact #) [] Refer to [facility] Booklet Call your doctor immediately for: * Fever > 100.5 * Heavy vaginal bleeding ( >1 pad per hour) * Severe persistent headache * Shortness of breath * Reddened, hot, painful area to leg or breast * Drainage or odor from incision. * Keep incision clean and dry at all times and follow doctor's instructions regarding bathing/showering Congratulations on your baby boy! Please schedule his circumcision in 1 week. Please schedule your incision check in 1 week. You have been given a prescription for EMLA cream. Do not use this cream at home but bring it with you to your son's circumcision appointment. Should you have any questions or concerns after discharge, please do not hesitate to call the office at [phone]. - Follow up plan Follow up: TATUM VELOZ MD [Primary Care Provider] - 7 Days Forms: [facility] Discharge Summary, Discharge Signature Page
[2021-06-11 09:45] VITALS: BP 102/68
[2021-06-11] MEDS: IBUPROFEN 800 MG TAB PO PRN (12:13)
[2021-06-11] MEDS: PRENATAL VIT27-FE FUMARATE-FOLIC ACID VIT TAB PO SCH (12:13)
== END 2021-06-11 13:15 | disposition home or self-care (01) | DRG 765 ==
LOC: LD 16:14 → OB 06-09 03:33
PROVIDERS: ADMIT Obstetrics & Gynecology; ATTEND Obstetrics & Gynecology
PROC: 10D00Z1 Extraction of Products of Conception, Low, Open Approach (ICD-10-PCS; principal; 2021-06-09)
PROC: 3E0234Z Introduction of Serum, Toxoid and Vaccine into Muscle, Percutaneous Approach (ICD-10-PCS; 2021-06-09)
PROC: 10H07YZ Insertion of Other Device into Products of Conception, Via Natural or Artificial Opening (ICD-10-PCS; 2021-06-09)
DX: O48.0 Post-term pregnancy (principal); O75.2 Pyrexia during labor, not elsewhere classified; Z3A.41 41 weeks gestation of pregnancy; Z23 Encounter for immunization; O76 Abnormality in fetal heart rate and rhythm complicating labor and delivery; O62.1 Secondary uterine inertia; O69.81X0 Labor and delivery complicated by cord around neck, without compression, not applicable or unspecified; Z20.822 Contact with and (suspected) exposure to COVID-19
CPT/HCPCS: 36415; 59200; 85014; 85018; 85027; 86592; 86850; 86900; 86901; 87086; G0378; A6250; J0290; J0690; J1100; J1885; J2370; J2405; J2590; J3010; J3105; J3490; J7120; U0003